=== PATIENT | male | born 1950 | race African-American/Black ===

== ENCOUNTER 2017-08-10 12:43 | Emergency (ER) | payer OTHER ==
[2017-08-10 12:53] VITALS: BP 147/94; PULSE 62; TEMP 98.3; BMI 21.6
--- NOTE | 2017-08-10 13:45 | PDOC ---
History of Present Illness - General Chief Complaint: Pain Stated Complaint: LEG PAIN Time Seen by Provider: 08/10/17 13:43 - History of Present Illness Initial Comments: 66 yo man w/ pmh of HTN, PAD, BPH who presents to ED from work today due to 2 days of worsening R leg claudication in setting recently diagnosed BL LE PAD. Pt was recently seen on 06/[address] Washington for evaluation of BL LE claudications , found to have BL arterial occlusions in LEs on imaging. Pt states two days ago he began noting worsening pain in his R popliteal fossa, with cramping in his posterior thigh. Pain states he can walk 1 block before experiencing the pain, alleviated by rest. Pt denies any asymmetry in warmth between legs, numbness/weakness in extremities. Pt was undergoing medical clearance for possible vascular procedure with Dr. Washington and was seen by Dr. Savage (cardiology ) this AM, cleared for surgery from a cardiac perspective. Of note, pt takes ASA for AC, but has not taken his ASA in 3-4 days. Pt denies f/c/n/v/d, FITZGERALD, CP, sob, cough, ab pain, back pain, LE edema, FND. 08/10/17 14:13 Past History - Past Medical History Allergies/Adverse Reactions: Allergies Allergy/AdvReac Type Severity Reaction Status Date / Time No Known Allergies Allergy Verified 08/10/17 12:50 Home Medications: Ambulatory Orders Amlodipine Besylate 1 tab PO DAILY 05/31/17 Finasteride 1 tab PO DAILY 05/31/17 Gabapentin 1 tab PO TID 05/31/17 Multivitamin [Multiple Vitamins] 1 tab PO DAILY 05/31/17 Omeprazole 40 mg PO DAILY 05/31/17 Tamsulosin HCl 1 tab PO DAILY 05/31/17 COPD: No HTN: Yes Hypercholesterolemia: Yes - Surgical History Abdominal Surgery: Yes (HERNIA) - Suicide/Smoking/Psychosocial Hx Smoking History: Current every day smoker Have you smoked in the past 12 months: Yes Number of Cigarettes Smoked Daily: 2 Information on smoking cessation initiated: Yes 'Breaking Loose' booklet given: 08/10/17 Hx Alcohol Use: No Drug/Substance Use Hx: No Substance Use Type: Alcohol Review of Systems - Review of Systems Comments:: GENERAL/CONSTITUTIONAL: No fever or chills. No weakness. HEAD, EYES, EARS, NOSE AND THROAT: No change in vision. No ear pain or discharge. No sore throat. CARDIOVASCULAR: No chest pain or shortness of breath RESPIRATORY: No cough, wheezing, or hemoptysis. GASTROINTESTINAL: No nausea, vomiting, diarrhea or constipation. GENITOURINARY: No dysuria, frequency, or change in urination. MUSCULOSKELETAL: Pain in R knee joint, worse with ambulation and climbing stairs. No joint or muscle swelling or pain. No neck or back pain. SKIN: No rash NEUROLOGIC: No headache, vertigo, loss of consciousness, or change in strength/ sensation. ENDOCRINE: No increased thirst. No abnormal weight change HEMATOLOGIC/LYMPHATIC: No anemia, easy bleeding, or history of blood clots. ALLERGIC/IMMUNOLOGIC: No hives or skin allergy. 08/10/17 13:44 08/10/17 14:22 *Physical Exam - Vital Signs Last Vital Signs Temp Pulse Resp BP Pulse Ox 98.3 F 62 18 147/94 100 08/10/17 12:51 08/10/17 12:51 08/10/17 12:51 08/10/17 12:51 08/10/17 12:51 - Physical Exam Comments: GENERAL: Elderly man, Awake, alert, and fully oriented, in no acute distress HEAD: No signs of trauma, normocephalic, atraumatic EYES: PERRLA, EOMI, sclera anicteric, conjunctiva clear ENT: Auricles normal inspection, hearing grossly normal, nares patent, oropharynx clear withoutexudates. Moist mucosa NECK: Normal ROM, supple, no lymphadenopathy, JVD, or masses LUNGS: No distress, speaks full sentences, clear to auscultation bilaterally HEART: Regular rate and rhythm, normal S1 and S2, no murmurs, rubs or gallops, peripheral pulses normal and equal bilaterally. ABDOMEN: Soft, nontender, normoactive bowel sounds. No guarding, no rebound. No masses EXTREMITIES : 1+ DP pulses BL, PT pulses. NO edema. warm to touch BL> Normal inspection, Normal range of motion, no edema. No clubbing or cyanosis. NEUROLOGICAL: Cranial nerves II through XII grossly intact. Normal speech, normal gait, no focal sensorimotor deficits SKIN: Warm, Dry, normal turgor, no rashes or lesions noted 08/10/17 13:45 08/10/17 14:23 ED Treatment Course - LABORATORY CBC & Chemistry Diagram: 08/10/17 15:45 08/10/17 15:45 Medical Decision Making - Medical Decision Making CBC, CMP, Coags, LE arterial doppler BL. Will contact Dr. Washington to discuss case. 08/10/17 18:38 Arterial doppler notable for no arterial clot, no significant change in prior R SFA stenosis. Will d/c with f/u with Dr. Washington as outpt. 08/10/17 18:52 Pt ambulatory with no pain in R leg, nontender to palpation. Will defer XR of R knee and discharge home with plan for continued outpt w/u for BL LE angioplasty with Dr. Washington. *DC/Admit/Observation/Transfer Diagnosis at time of Disposition: Peripheral arterial disease - Discharge Dispostion Disposition: HOME Condition at time of disposition: Good Decision to Admit order: No - Referrals Referrals: Cata Washington MD [Primary Care Provider] - 1 week Anand Washington MD [Staff Physician] - 1 week - Patient Instructions Printed Discharge Instructions: Peripheral Artery Disease Additional Instructions: During your visit to [facility] emergency department, you were evaluated for pain in R leg. You received an ultrasound of the arteries in both legs, which showed no blood clots or significant changes in the narrowing in your R superficial femoral artery. You are being discharged with outpatient follow-up with Dr. Anand Washington for further work-up for the scheduled angioplasty of the arteries in your lower extremities. Please follow-up with your primary care provider at your earliest convenience for further evaluation and clearance for your planned procedure with Dr. Washington. Please inform them to consider ordering x-ray of your right knee to further evaluate your pain if they deem it necessary for possible joint disease. Please continue taking your aspirin as originally prescribed. This medication will help prevent blood clots in your legs. Please return to the emergency department if you experience any of the following symptoms: - Worsening pain in your legs - If one leg becomes cold or numb - Any new or concerning symptoms - Post Discharge Activity
--- NOTE | 2017-08-10 13:50 | PDOC ---
Attending Attestation - Resident Resident Name: Duncankeejosé [email or web address] - HPI HPI: 08/10/17 14:59 Pt presents to the ED complaining of worsening of his chronic R LE claudication. Two days ago, pain became persistent and did not resolve with rest. Since then, patient has been at his baseline exercise tolerance of approximately one block before he has claudication. Denies other complaints. - Physicial Exam PE: 08/10/17 15:02 Agree with resident exam. + 1 dorasalis pedis pulse on affected foot. Foot is warm and neurovascularly intact. Full ROm at knee, without deformity or tenderness. - Medical Decision Making 08/10/17 15:03 Pt presents to the ED complaining of pain in the R knee when going up the stairs. Pain does not seem consistent with claudication , but given his history , will check arterial dopplers to evaluate for progressive disease.
[2017-08-10 16:08] LABS: EOS % 0.6 % (0-4.5); HEMATOCRIT 43.1 % (35.4-49); LYMPH % 22.3 % (8-40); MCH 30.9 pg (25.7-33.7); MCHC 34.8 g/dl (32.0-35.9); MEAN CELL VOLUME 88.8 fl (80-96); MEAN PLT VOLUME 8.2 fl (7.5-11.1); MONO % 8.3 % (3.8-10.2); NEUT % 67.8 % (42.8-82.8); PLATELET COUNT 205 K/MM3 (134-434); RBC 4.86 M/mm3 (4.00-5.60); RDW 15.4 % (11.9-15.9); WHITE BLOOD COUNT 7.4 K/mm3 (4.0-10.0)
[2017-08-10 16:22] LABS: INR 1.03 (0.82-1.09); PROTHROMBIN TIME (PATIENT) 11.6 SEC (9.7-13.0)
[2017-08-10 16:33] LABS: ALBUMIN 3.5 g/dl (3.4-5.0); ANION GAP 4 (8-16); BILIRUBIN,TOTAL 0.2 mg/dL (0.2-1.0); BLOOD UREA NITROGEN 18 mg/dL (7-18); CHLORIDE 106 mmol/L (98-107); CO2 29 mmol/L (21-32); CREATININE 1.2 mg/dL (0.7-1.3); GLUCOSE,RANDOM 88 mg/dL (74-106); POTASSIUM 4.4 mmol/L (3.5-5.1); SGOT/AST 23 U/L (15-37); SODIUM 139 mmol/L (136-145); TOT PROT 6.8 g/dl (6.4-8.2)
[2017-08-10 16:35] LABS: ALK PHOS 78 U/L (45-117); SGPT/ALT 20 U/L (12-78)
== END 2017-08-10 19:37 | disposition home or self-care (01) ==
LOC: JER 12:43
DX: I77.89 Other specified disorders of arteries and arterioles (principal); I10 Essential (primary) hypertension; E78.00 Pure hypercholesterolemia, unspecified; N40.0 Benign prostatic hyperplasia without lower urinary tract symptoms; F17.210 Nicotine dependence, cigarettes, uncomplicated; Z79.82 Long term (current) use of aspirin
CPT/HCPCS: 36415; 80053; 85025; 85610; 93926-TC; 99282-25

== ENCOUNTER 2018-01-07 11:41 | Emergency (ER) | payer MEDICARE, OTHER ==
[2018-01-07 11:50] VITALS: BP 114/76; PULSE 75; TEMP 98.9; BMI 22.4
[2018-01-07] MEDS ORDERED: IBUPROFEN 400 MG TABLET (FP) PO ONE ×2 (12:06→12:17)
[2018-01-07] MEDS ORDERED: ALBUTEROL SO4 2.5/IPRATROPIUM 0.5 INH SOL 3 ML VIAL.NEB. NEB ONE ×2 (12:07→12:17)
[2018-01-07] MEDS ORDERED: guaiFENesin/CODEINE 5 ML UNIT-DOSE CUPS PO ONE (12:07)
--- NOTE | 2018-01-07 12:17 | PDOC ---
History of Present Illness - General Chief Complaint: Respiratory Stated Complaint: LT SIDE PAIN Time Seen by Provider: 01/07/18 11:56 History Source: Patient Exam Limitations: No Limitations Past History - Travel Traveled outside of the country in the last 30 days: No Close contact w/someone who was outside of country & ill: No - Past Medical History Allergies/Adverse Reactions: Allergies Allergy/AdvReac Type Severity Reaction Status Date / Time No Known Allergies Allergy Verified 01/07/18 11:53 Home Medications: Ambulatory Orders Amlodipine Besylate 1 tab PO DAILY 05/31/17 Finasteride 1 tab PO DAILY 05/31/17 Gabapentin 1 tab PO TID 05/31/17 Multivitamin [Multiple Vitamins] 1 tab PO DAILY 05/31/17 Omeprazole 40 mg PO DAILY 05/31/17 Tamsulosin HCl 1 tab PO DAILY 05/31/17 Albuterol Sulfate Inhaler - [Ventolin HFA Inhaler -] 1 - 2 inh PO Q4H #1 inhaler 01/07/18 Aspirin [ASA -] 81 mg PO DAILY 01/07/18 Guaifenesin AC [Robitussin AC] 10 ml PO HS #150 ml MDD 1 01/07/18 Ibuprofen 600 mg PO Q6H #30 tablet 01/07/18 Simvastatin [Zocor -] 20 mg PO HS 01/07/18 COPD: No HTN: Yes Hypercholesterolemia: Yes - Surgical History Abdominal Surgery: Yes (HERNIA) - Suicide/Smoking/Psychosocial Hx Smoking History: Current every day smoker Have you smoked in the past 12 months: Yes Number of Cigarettes Smoked Daily: 10 Information on smoking cessation initiated: No 'Breaking Loose' booklet given: 08/10/17 Hx Alcohol Use: No Drug/Substance Use Hx: No Substance Use Type: Alcohol Review of Systems - Review of Systems Able to Perform ROS?: Yes Comments:: 01/07/18 12:03 CONSTITUTIONAL: Absent: fever, chills, diaphoresis, generalized weakness, malaise, loss of appetite HEENT: Absent: rhinorrhea, nasal congestion, throat pain, throat swelling, difficulty swallowing, mouth swelling, ear pain, eye pain, visual Changes CARDIOVASCULAR: Absent: chest pain, loss of consciousness, palpitations, irregular heart rate, peripheral edema RESPIRATORY: Absent: cough, shortness of breath, dyspnea with exertion, orthopnea, wheezing, stridor, hemoptysis GASTROINTESTINAL: Absent: abdominal pain, abdominal distension, nausea, vomiting, diarrhea, constipation, melena, hematochezia GENITOURINARY: Absent: dysuria, frequency, urgency, hesitancy, hematuria, flank pain, genital pain MUSCULOSKELETAL: Absent: myalgia, arthralgia, joint swelling SKIN: Absent: rash, itching, pallor HEMATOLOGIC/IMMUNOLOGIC: Absent: easy bleeding, easy bruising, lymphadenopathy, frequent infections ENDOCRINE: Absent: unexplained weight gain, unexplained weight loss, heat intolerance, cold intolerance NEUROLOGIC: Absent: headache, focal weakness or paresthesias, dizziness, unsteady gait, seizure, mental status changes, bladder or bowel incontinence PSYCHIATRIC: Absent: anxiety, depression, suicidal or homicidal ideation, hallucinations. Is the patient limited Polish proficient: No *Physical Exam - Vital Signs Last Vital Signs Temp Pulse Resp BP Pulse Ox 98.9 F 75 18 114/76 99 01/07/18 11:44 01/07/18 11:44 01/07/18 11:44 01/07/18 11:44 01/07/18 11:44 - Physical Exam Comments: 01/07/18 12:03 GENERAL: Well developed, well nourished. Awake and alert. No acute distress. HEENT: Normocephalic, atraumatic. PERRLA, EOMI. No conjunctival pallor. Sclera are non- icteric. Moist mucous membranes. Oropharynx is clear. NECK: Supple. Full ROM. No JVD. Carotid pulses 2+ and symmetric, without bruits. No thyromegaly. No lymphadenopathy. CARDIOVASCULAR: Regular rate and rhythm. No murmurs, rubs, or gallops. Distal pulses are 2+ and symmetric. PULMONARY: No evidence of respiratory distress. Lungs clear to auscultation bilaterally. No wheezing, rales or rhonchi. ABDOMINAL: Soft. Non-tender. Non-distended. No rebound or guarding. No organomegaly. Normoactive bowel sounds. MUSCULOSKELETAL Normal range of motion at all joints. No bony deformities or tenderness. No CVA tenderness. EXTREMITIES: No cyanosis. No clubbing. No edema. No calf tenderness. SKIN: Warm and dry. Normal capillary refill. No rashes. No jaundice. NEUROLOGICAL: Alert, awake, appropriate. Cranial nerves 2-12 intact. No deficits to light touch and temperature in face, upper extremities and lower extremities. No motor deficits in the in face, upper extremities and lower extremities. Normoreflexic in the upper and lower extremities. Normal speech. Toes are down- going bilaterally. Gait is normal without ataxia. PSYCHIATRIC: Cooperative. Good eye contact. Appropriate mood and affect. *DC/Admit/Observation/Transfer Diagnosis at time of Disposition: Upper respiratory infection Qualifiers: URI type: unspecified viral URI Qualified Code(s): J06.9 - Acute upper respiratory infection, unspecified - Discharge Dispostion Disposition: HOME Condition at time of disposition: Stable Decision to Admit order: No - Referrals Referrals: Cata Washington MD [Primary Care Provider] - - Patient Instructions Printed Discharge Instructions: DI for Viral Upper Respiratory Infection -- Adult Additional Instructions: You have an upper respiratory infection, or the common cold. Please take Motrin 600 mg every 6 hours as needed for pain not to exceed 3000 mg a day. You may use the albuterol inhaler every 4 hours as needed for cough You may take the robitussin with codiene before bed to help with the cough. Do not drink or drive after taking this medication as it may make you sleepy. Drink plenty of fluids. Cough drops and warm tea may help your symptoms as well. Please follow up with her primary care doctor this week. Return to the emergency department if you have difficulty breathing, shortness of breath, worsening pain, nausea, vomiting or if you have any changes in your symptoms. - Post Discharge Activity Forms/Work/School Notes: Back to Work
[2018-01-07] MEDS ORDERED: guaiFENesin/CODEINE 10 ML UNIT-DOSE CUPS PO ONE (12:18)
== END 2018-01-07 12:54 | disposition home or self-care (01) ==
LOC: JERFT 11:41
PROC: 3E0F7GC Introduction of Other Therapeutic Substance into Respiratory Tract, Via Natural or Artificial Opening (ICD-10-PCS; principal; 2018-01-07)
DX: J06.9 Acute upper respiratory infection, unspecified (principal); I10 Essential (primary) hypertension; E78.00 Pure hypercholesterolemia, unspecified; Z79.82 Long term (current) use of aspirin
CPT/HCPCS: 94640; 99281-25; J7620

== ENCOUNTER 2019-01-12 09:49 | Day surgery (SDC) | payer MEDICARE ==
[2019-01-11 12:14] VITALS: BMI 22.4
[2019-01-12] MEDS ORDERED: HEPARIN NA (PORCINE) 5,000 UNITS/ML 1ML VIAL ONE ×2 (11:29)
[2019-01-12] MEDS ORDERED: LIDOCAINE HCL 1%, 10 MG/ML (20ML VIAL) ONE (11:29)
--- NOTE | 2019-01-12 11:40 | HP ---
Admitting History and Physical - Admission Chief Complaint: Left lower extremity claudication Limitations to Obtaining History: No Limitations - Past Medical History Cardiovascular: Yes: HTN Gastrointestinal: Yes: GERD Renal/: Yes: BPH - Past Surgical History Past Surgical History: Yes: Hernia Repair - Smoking History Smoking history: Current every day smoker Have you smoked in the past 12 months: Yes Aproximately how many cigarettes per day: 10 - Alcohol/Substance Use Hx Alcohol Use: Yes (5 beers 5x week) Home Medications - Allergies Allergies/Adverse Reactions: Allergies Allergy/AdvReac Type Severity Reaction Status Date / Time No Known Allergies Allergy Verified 01/11/19 11:58 - Home Medications Home Medications: Ambulatory Orders Amlodipine Besylate 1 tab PO DAILY 05/31/17 Finasteride 1 tab PO DAILY 05/31/17 Gabapentin 1 tab PO TID 05/31/17 Multivitamin [Multiple Vitamins] 1 tab PO DAILY 05/31/17 Omeprazole 40 mg PO DAILY 05/31/17 Tamsulosin HCl 1 tab PO DAILY 05/31/17 Aspirin [ASA -] 81 mg PO DAILY 01/07/18 Simvastatin [Zocor -] 20 mg PO HS 01/07/18 Review of Systems - Review of Systems Constitutional: reports: No Symptoms Eyes: reports: No Symptoms HENT: reports: No Symptoms Neck: reports: No Symptoms Cardiovascular: reports: No Symptoms Respiratory: reports: No Symptoms Gastrointestinal: reports: No Symptoms Genitourinary: reports: No Symptoms Breasts: reports: No Symptoms Reported Musculoskeletal: reports: No Symptoms Integumentary: reports: No Symptoms Neurological: reports: No Symptoms Endocrine: reports: No Symptoms Hematology/Lymphatic: reports: No Symptoms Psychiatric: reports: No Symptoms Physical Examination Vital Signs: Vital Signs Temperature 98.0 F 01/12/19 10:31 Pulse Rate 60 01/12/19 10:31 Respiratory Rate 20 01/12/19 10:31 Blood Pressure 123/69 01/12/19 10:31 O2 Sat by Pulse Oximetry (%) 100 01/12/19 10:31 Constitutional: Yes: Well Nourished, No Distress, Calm Eyes: Yes: WNL, Conjunctiva Clear, EOM Intact HENT: Yes: WNL, Atraumatic, Normocephalic Neck: Yes: WNL, Supple, Trachea Midline Cardiovascular: Yes: WNL, Regular Rate and Rhythm Respiratory: Yes: WNL, Regular, CTA Bilaterally Gastrointestinal: Yes: WNL, Normal Bowel Sounds Musculoskeletal: Yes: WNL Extremities: Yes: WNL Edema: No Peripheral Pulses WNL: No Integumentary: Yes: WNL Neurological: Yes: WNL, Alert, Oriented ...Motor Strength: WNL Psychiatric: Yes: WNL Problem List - Problems (1) Left leg claudication Assessment/Plan: for angiogram today Code(s): I73.9 - PERIPHERAL VASCULAR DISEASE, UNSPECIFIED
[2019-01-12] MEDS ORDERED: ceFAZolin SODIUM 1 GM VIAL IVPB ONE (12:20)
[2019-01-12] MEDS ORDERED: MIDAZOLAM HCL 2 MG/2 ML SINGLE DOSE VIAL ONE ×2 (12:21)
[2019-01-12] MEDS ORDERED: HEPARIN NA (PORCINE) 5,000 UNITS/ML 1ML VIAL IV ONE (12:39)
[2019-01-12] MEDS ORDERED: LIDOCAINE HCL 1%, 10 MG/ML (20ML VIAL) PNB ONE (12:41)
[2019-01-12] MEDS ORDERED: oxyCODONE HCL 5 MG TABLET PO PRN (13:17)
[2019-01-12] MEDS ORDERED: ONDANSETRON 4 MG/2 ML VIAL IVPUSH PRN (13:17)
--- NOTE | 2019-01-12 13:17 | OP ---
Operative Note - Note: Operative Date: 01/12/19 Operation: Aortogram, LLE angiogram Findings: sfa occlusion Post-Operative Diagnosis: Same as Pre-op Surgeon: Anand Washington Anesthesia: Fractional Estimated Blood Loss (mls): 50 Operative Report Dictated: Yes
[2019-01-12] MEDS ORDERED: LACTATED RINGERS SOLUTION 1,000 ML IV SCH (13:30)
[2019-01-12 16:33] VITALS: TEMP 97.4
[2019-01-12 16:39] VITALS: BP 127/78; PULSE 65
--- NOTE | 2019-01-24 12:31 | OP ---
DATE OF OPERATION: 01/12/2019 PREOPERATIVE DIAGNOSIS: Left lower extremity claudication. POSTOPERATIVE DIAGNOSIS: Left lower extremity claudication. PROCEDURE: Left lower extremity angiogram, aortogram. SURGEON: Anand Medina DO ANESTHESIA: Fractional. BLOOD LOSS: 20 mL. INDICATIONS: Patient is a 68-year-old male who is a smoker for more than 40 years comes in with left lower extremity claudication. Preoperative ultrasound showed that he has SFA disease. Patient was consented. Patient came into ambulatory surgery. Patient was consented for the procedure understanding all risks, benefits, and alternatives and was then taken to the operating room. DESCRIPTION OF PROCEDURE: Once in the operating room, was laid on the operating room table in supine manner, and the area of the right and left groin were prepped and draped in a sterile surgical manner. We then injected 10 mL of lidocaine 1% over the right common femoral artery. We then took our micropuncture needle and punctured the right common femoral artery. Micropuncture wire was inserted. Micropuncture sheath was inserted. A traditional 5-Belarusian sheath was inserted. We then placed a 0.035 floppy guidewire up into the aorta followed by Omni Flush catheter. We then shot an aortogram via hand injection showing that the aorta and iliac arteries were without any disease. We then went ahead and placed our 0.035 floppy guidewire up and over to the left common femoral artery, and our Omni Flush catheter followed. We then shot an angiogram of the left lower extremity showing that the common femoral artery and the profunda were patent. The SFA was occluded from its origin and did not come back until past the adductor canal and the above-knee popliteal artery. Patient had 2-vessel runoff into the foot. At this point, it was decided that the patient would either need a femoropopliteal bypass or would need a retrograde stick from the popliteal artery to go up to the common femoral artery and place a stent in the SFA. The patient will need to be brought back for that. Several attempts were made for the 0.035 stiff guidewire to go into the SFA and cannulate it, but since there was no origin that can be seen, it was very difficult. Patient will be brought back at a later setting now. At this point, our Omni Flush catheter was removed. We removed our sheath from the right groin. Pressure was held for 5 minutes. After there was no more bleeding, the area was wet and dried, and Dermabond was placed. Patient tolerated the procedure with no complications. Patient transferred to PACU in stable condition. ANAND MEDINA DO NP/[id number]
== END 2019-01-12 16:00 | disposition home or self-care (01) ==
LOC: JASU-SURG 09:49
PROVIDERS: ATTEND Surgery Vascular Surgery
PROC: B40GYZZ Plain Radiography of Left Lower Extremity Arteries using Other Contrast (ICD-10-PCS; principal; 2019-01-12 12:00)
DX: I70.212 Atherosclerosis of native arteries of extremities with intermittent claudication, left leg (principal); F17.210 Nicotine dependence, cigarettes, uncomplicated; I11.9 Hypertensive heart disease without heart failure; E78.00 Pure hypercholesterolemia, unspecified
CPT/HCPCS: 76000-TC-FY; 94760; J1644

== ENCOUNTER 2019-02-02 07:41 | Day surgery (SDC) | payer MEDICARE ==
[2019-02-01 13:06] VITALS: BMI 22.4
[2019-02-02] MEDS ORDERED: MIDAZOLAM HCL 2 MG/2 ML SINGLE DOSE VIAL ONE ×3 (07:49)
[2019-02-02] MEDS ORDERED: PROPOFOL 20 ML ONE ×3 (07:56→09:48)
[2019-02-02] MEDS ORDERED: NITROGLYCERIN 50 MG/10 ML VIAL IVPB ONE (07:57)
[2019-02-02] MEDS ORDERED: HEPARIN NA (PORCINE) 5,000 UNITS/ML 1ML VIAL ONE ×2 (07:58→09:43)
[2019-02-02] MEDS ORDERED: LIDOCAINE HCL 1%, 10 MG/ML (20ML VIAL) ONE (07:58)
[2019-02-02] MEDS ORDERED: oxyCODONE HCL 5 MG TABLET PO PRN ×2 (08:33)
[2019-02-02] MEDS ORDERED: ONDANSETRON 4 MG/2 ML VIAL IVPUSH PRN (08:33)
[2019-02-02] MEDS ORDERED: LACTATED RINGERS SOLUTION 1,000 ML IV SCH (08:45)
--- NOTE | 2019-02-02 09:02 | HP ---
Admitting History and Physical - Admission Chief Complaint: left lower extremity claudication less than one block Limitations to Obtaining History: No Limitations - Past Medical History Cardiovascular: Yes: HTN Gastrointestinal: Yes: GERD Renal/: Yes: BPH - Past Surgical History Past Surgical History: Yes: Hernia Repair - Smoking History Smoking history: Current every day smoker Have you smoked in the past 12 months: Yes Aproximately how many cigarettes per day: 10 - Alcohol/Substance Use Hx Alcohol Use: Yes (5 beers 5x week) Home Medications - Allergies Allergies/Adverse Reactions: Allergies Allergy/AdvReac Type Severity Reaction Status Date / Time No Known Allergies Allergy Verified 02/02/19 08:26 - Home Medications Home Medications: Ambulatory Orders Amlodipine Besylate 1 tab PO DAILY 05/31/17 Finasteride 1 tab PO DAILY 05/31/17 Gabapentin 1 tab PO TID 05/31/17 Multivitamin [Multiple Vitamins] 1 tab PO DAILY 05/31/17 Omeprazole 40 mg PO DAILY 05/31/17 Tamsulosin HCl 1 tab PO DAILY 05/31/17 Aspirin [ASA -] 81 mg PO DAILY 01/07/18 Simvastatin [Zocor -] 20 mg PO HS 01/07/18 Review of Systems - Review of Systems Constitutional: reports: No Symptoms Eyes: reports: No Symptoms HENT: reports: No Symptoms Neck: reports: No Symptoms Cardiovascular: reports: No Symptoms Respiratory: reports: No Symptoms Gastrointestinal: reports: No Symptoms Genitourinary: reports: No Symptoms Breasts: reports: No Symptoms Reported Musculoskeletal: reports: No Symptoms Integumentary: reports: No Symptoms Neurological: reports: No Symptoms Endocrine: reports: No Symptoms Hematology/Lymphatic: reports: No Symptoms Psychiatric: reports: No Symptoms Physical Examination Vital Signs: Vital Signs Temperature 97.8 F 02/02/19 08:25 Pulse Rate 56 L 02/02/19 08:25 Respiratory Rate 20 02/02/19 08:25 Blood Pressure 130/71 02/02/19 08:25 O2 Sat by Pulse Oximetry (%) 99 02/02/19 08:18 Constitutional: Yes: Well Nourished, No Distress, Calm Eyes: Yes: WNL, Conjunctiva Clear, EOM Intact HENT: Yes: WNL, Atraumatic, Normocephalic Neck: Yes: WNL, Supple, Trachea Midline Cardiovascular: Yes: WNL, Regular Rate and Rhythm Respiratory: Yes: WNL, Regular, CTA Bilaterally Gastrointestinal: Yes: WNL, Normal Bowel Sounds ...Rectal Exam: Yes: WNL Renal/: Yes: WNL Musculoskeletal: Yes: WNL Extremities: Yes: WNL Edema: No Peripheral Pulses WNL: No Integumentary: Yes: WNL Neurological: Yes: WNL, Alert, Oriented ...Motor Strength: WNL Psychiatric: Yes: WNL Problem List - Problems (1) Left leg claudication Assessment/Plan: for angiogram of left leg via popliteal approach Problems reviewed: Yes Code(s): I73.9 - PERIPHERAL VASCULAR DISEASE, UNSPECIFIED
[2019-02-02] MEDS ORDERED: ceFAZolin 2 GRAM PREMIX BAG IVPB ONE (09:15)
[2019-02-02] MEDS ORDERED: EPHEDRINE SULFATE/0.9% NACL/PF 50 MG/10 ML SYRINGE NR ONE (09:37)
[2019-02-02] MEDS ORDERED: SUCCINYLCHOLINE CHLORIDE 200 MG/10 ML SYRINGE ONE (09:38)
[2019-02-02] MEDS ORDERED: LIDOCAINE HCL 1%, 10 MG/ML (20ML VIAL) NR ONE ×2 (09:40)
--- NOTE | 2019-02-02 10:35 | OP ---
Operative Note - Note: Operative Date: 02/02/19 Pre-Operative Diagnosis: Left lower extremity claudication Operation: Left lower extremity angiogram via retrograde popliteal approach Findings: sfa occlusion Post-Operative Diagnosis: Same as Pre-op Surgeon: Anand Washington Anesthesia: Fractional Estimated Blood Loss (mls): 25 Operative Report Dictated: Yes
[2019-02-02 11:20] VITALS: TEMP 97.4
--- NOTE | 2019-02-02 11:38 | OP ---
DATE OF OPERATION: 02/02/2019 PREOPERATIVE DIAGNOSIS: Left lower extremity claudication. POSTOPERATIVE DIAGNOSIS: Left lower extremity claudication. PROCEDURE: Left lower extremity angiogram via retrograde popliteal approach. SURGEON: Anand Medina DO ANESTHESIA: Fractional. ESTIMATED BLOOD LOSS: 25 mL. INDICATIONS: Patient is a 68-year-old male that has left lower extremity claudication less than 1 block. Two weeks ago he had an antegrade approach angiogram, and the SFA was found to be completely occluded from the origin all the way down to the above-knee popliteal/adductor canal. We decided that we would bring him back 2 weeks later and do a retrograde approach from the popliteal artery and see if we could get through the occluded SFA and then balloon and stent him. Patient was consented for the procedure understanding all risks, benefits, alternatives and then taken to the operating room. DESCRIPTION OF PROCEDURE: Once in the operating room, was laid on the operating room table in a prone manner, and the area of the left popliteal fossa was prepped and draped in a sterile surgical manner. Under ultrasound guidance, we did visualize the left popliteal artery, and 10 mL of lidocaine 1% was injected there. We then took our micropuncture needle, punctured the left popliteal artery. Micropuncture wire was inserted. Micropuncture sheath was inserted, and a traditional short 6-Tajik sheath was inserted. We then placed a 0.035 floppy guidewire under fluoroscopy up into the occluded SFA followed by a Quick-Cross catheter. We were able to get through the occluded SFA and placed a wire into the common femoral artery and into the iliac artery; however, we were always subintimal, and we were never able to get into the resighini vessel. After multiple attempts using a burn catheter and trying to redirect our wire, we still were never in the proper resighini vessel. At this point, we decided that the best procedure for this patient would be a left femoral popliteal. We removed our wires and catheters. We removed the sheath from the popliteal fossa. During the procedure, the patient had been given 5000 units of IV heparin. We held pressure over the left popliteal fossa for 15 minutes. After there was no more bleeding, the area was wet and dried, and Dermabond was placed. The patient tolerated the procedure with no complications. Patient was transferred to the PACU in stable condition. ANAND MEDINA DO MEDICAL BILLING ASSISTANT/[id number]
[2019-02-02 12:41] VITALS: BP 117/70; PULSE 58
== END 2019-02-02 13:15 | disposition home or self-care (01) ==
LOC: JASU-SURG 07:41
PROVIDERS: ATTEND Surgery Vascular Surgery
PROC: B40GYZZ Plain Radiography of Left Lower Extremity Arteries using Other Contrast (ICD-10-PCS; principal; 2019-02-02 09:00)
DX: I70.212 Atherosclerosis of native arteries of extremities with intermittent claudication, left leg (principal)
CPT/HCPCS: 76000-TC-FY; 94760; J1644

== ENCOUNTER 2019-04-20 08:30 | Inpatient (IN) | payer MEDICARE, OTHER ==
[2019-04-19 15:51] VITALS: BMI 22.4
[2019-04-20] MEDS ORDERED: LIDOCAINE HCL 1%, 10 MG/ML (20ML VIAL) ONE (08:49)
[2019-04-20] MEDS ORDERED: HEPARIN NA (PORCINE) 5,000 UNITS/ML 1ML VIAL ONE ×2 (08:49→11:56)
--- NOTE | 2019-04-20 09:11 | HP ---
Admitting History and Physical - Admission Chief Complaint: left lower extremity claudication less than one block. Limitations to Obtaining History: No Limitations - Past Medical History Cardiovascular: Yes: HTN Gastrointestinal: Yes: GERD Renal/: Yes: BPH - Past Surgical History Past Surgical History: Yes: Hernia Repair - Smoking History Smoking history: Current every day smoker Have you smoked in the past 12 months: Yes Aproximately how many cigarettes per day: 10 - Alcohol/Substance Use Hx Alcohol Use: Yes (3-4 beers/day) Home Medications - Allergies Allergies/Adverse Reactions: Allergies Allergy/AdvReac Type Severity Reaction Status Date / Time No Known Allergies Allergy Verified 04/20/19 08:53 - Home Medications Home Medications: Ambulatory Orders Amlodipine Besylate 1 tab PO DAILY 05/31/17 Finasteride 1 tab PO DAILY 05/31/17 Gabapentin 1 tab PO TID 05/31/17 Multivitamin [Multiple Vitamins] 1 tab PO DAILY 05/31/17 Omeprazole 40 mg PO DAILY 05/31/17 Tamsulosin HCl 1 tab PO DAILY 05/31/17 Aspirin [ASA -] 81 mg PO DAILY 01/07/18 Simvastatin [Zocor -] 20 mg PO HS 01/07/18 Review of Systems - Review of Systems Constitutional: reports: No Symptoms Eyes: reports: No Symptoms HENT: reports: No Symptoms Neck: reports: No Symptoms Cardiovascular: reports: No Symptoms Respiratory: reports: No Symptoms Gastrointestinal: reports: No Symptoms Genitourinary: reports: No Symptoms Musculoskeletal: reports: No Symptoms Integumentary: reports: No Symptoms Neurological: reports: No Symptoms Endocrine: reports: No Symptoms Hematology/Lymphatic: reports: No Symptoms Psychiatric: reports: No Symptoms Physical Examination Vital Signs: Vital Signs Temperature 98.4 F 04/20/19 09:08 Pulse Rate 78 04/20/19 09:08 Respiratory Rate 18 04/20/19 09:08 Blood Pressure 119/76 04/20/19 09:08 O2 Sat by Pulse Oximetry (%) Constitutional: Yes: Well Nourished, No Distress, Calm Eyes: Yes: WNL, Conjunctiva Clear, EOM Intact HENT: Yes: WNL, Atraumatic, Normocephalic Neck: Yes: WNL, Supple, Trachea Midline Cardiovascular: Yes: WNL, Regular Rate and Rhythm Respiratory: Yes: WNL, Regular, CTA Bilaterally Gastrointestinal: Yes: WNL, Normal Bowel Sounds Musculoskeletal: Yes: WNL Extremities: Yes: WNL Edema: No Peripheral Pulses WNL: No Integumentary: Yes: WNL Neurological: Yes: WNL, Alert, Oriented ...Motor Strength: WNL Psychiatric: Yes: WNL Problem List - Problems (1) Left leg claudication Assessment/Plan: For left fem pop bypass with PTFE today Code(s): I73.9 - PERIPHERAL VASCULAR DISEASE, UNSPECIFIED
[2019-04-20] MEDS ORDERED: PROPOFOL 20 ML ONE (10:12)
[2019-04-20] MEDS ORDERED: SUCCINYLCHOLINE CHLORIDE 200 MG/10 ML SYRINGE ONE (10:12)
[2019-04-20] MEDS ORDERED: HYDROmorphone HCl 2 MG/ML VIAL ONE (10:32)
[2019-04-20] MEDS ORDERED: ceFAZolin SODIUM 1 GM VIAL ONE (10:40)
[2019-04-20] MEDS ORDERED: ceFAZolin SODIUM 1 GM VIAL IVPB ONE (10:40)
[2019-04-20] MEDS ORDERED: LIDOCAINE HCL 1%, 10 MG/ML (20ML VIAL) NR ONE (10:49)
[2019-04-20] MEDS ORDERED: DEXAMETHASONE SOD PHOSPHATE 4 MG/1 ML VIAL ONE (10:55)
[2019-04-20] MEDS ORDERED: POVIDONE-IODINE OINTMENT 10% - 28.4 GM TUBE ONE (13:51)
--- NOTE | 2019-04-20 15:38 | CONSULT ---
Consultation: REQUESTING PROVIDER: Dr Anand Washington CONSULT REQUEST: We have been asked to medically evaluate this patient for ICU monitoring HISTORY OF PRESENT ILLNESS: 68 y/o M with PMH of HTN, HLD, polysubstance abuse (tobacco, EtOH, cocaine, marijuana), PAD with 1 block R>L claudication presenting to [facility] for LLE Fen pop bypass surgery for SFA occlusion as prior interventions were unsuccessful. Pt has been having pain in his left leg for about a month only on ambulation. He denies any ulceration or rest pain since last visit on 02/07/19. Pt is active smoker (1/2 PPD) and continues to used cocaine with last use 3 days ago. Pt endorsed SOB prior to procedure but denies any chest pain, SOB currently, near or true syncope, palpitations, orthopnea, PND or LE edema. REVIEW OF SYSTEMS: CONSTITUTIONAL: Absent: fever, chills, diaphoresis, generalized weakness, malaise, loss of appetite, weight change HEENT: Absent: rhinorrhea, nasal congestion, throat pain, throat swelling, difficulty swallowing, mouth swelling, ear pain, eye pain, visual changes CARDIOVASCULAR: Absent: chest pain, syncope, palpitations, irregular heart rate, lightheadedness , peripheral edema RESPIRATORY: Absent: cough, shortness of breath, dyspnea with exertion, orthopnea, wheezing, stridor, hemoptysis GASTROINTESTINAL: Absent: abdominal pain, abdominal distension, nausea, vomiting, diarrhea, constipation, melena, hematochezia GENITOURINARY: Absent: dysuria, frequency, urgency, hesitancy, hematuria, flank pain, genital pain MUSCULOSKELETAL: Absent: myalgia, arthralgia, joint swelling, back pain, neck pain SKIN: Absent: rash, itching, pallor HEMATOLOGIC/IMMUNOLOGIC: Absent: easy bleeding, easy bruising, lymphadenopathy, frequent infections ENDOCRINE: Absent: unexplained weight gain, unexplained weight loss, heat intolerance, cold intolerance NEUROLOGIC: Absent: headache, focal weakness or paresthesias, dizziness, unsteady gait, seizure, mental status changes, bladder or bowel incontinence PSYCHIATRIC: Absent: anxiety, depression, suicidal or homicidal ideation, hallucinations. PHYSICAL EXAMINATION Vital Signs - 24 hr 04/20/19 04/20/19 04/20/19 09:08 09:29 14:20 Temperature 98.4 F 98.1 F Pulse Rate 78 103 H Respiratory 18 16 Rate Blood Pressure 119/76 154/78 O2 Sat by Pulse 96 100 Oximetry (%) 04/20/19 04/20/19 04/20/19 14:35 14:51 15:01 Temperature 98.1 F 98.3 F Pulse Rate 101 H 98 H Respiratory 16 16 16 Rate Blood Pressure 129/81 128/87 O2 Sat by Pulse 100 100 100 Oximetry (%) 04/20/19 15:04 Temperature 98.0 F Pulse Rate 102 H Respiratory 16 Rate Blood Pressure 126/80 O2 Sat by Pulse 100 Oximetry (%) GENERAL: still recovering from anesthesia but able to hold a conversation and AAOx3 HEAD: Normal with no signs of trauma. EYES: Pupils equal but constricted, round and reactive to light, extraocular movements intact, sclera anicteric, conjunctiva clear. No lid lag. EARS, NOSE, THROAT: oropharynx clear without exudates. Moist mucous membranes. NECK: Normal range of motion, supple without lymphadenopathy, JVD, or masses. LUNGS: Breath sounds equal, clear to auscultation bilaterally. No wheezes, and no crackles. No accessory muscle use. HEART: tachy but Regular rate and rhythm, normal S1 and S2 without murmur, rub or gallop. ABDOMEN: Soft, nontender, not distended, bowel sounds quiet s/p surgery, no guarding, no rebound, no masses. No hepatomegaly or splenomegaly. MUSCULOSKELETAL: Normal range of motion at all joints. No bony deformities or tenderness. No CVA tenderness. UPPER EXTREMITIES: 2+ pulses, warm, well-perfused. No cyanosis. No clubbing. Cap refill <2 seconds. No peripheral edema. LOWER EXTREMITIES: 1+ pulses on PT, absent on left DP and Right warm, well- perfused. No calf tenderness. No peripheral edema. PSYCHIATRIC: Cooperative. Good eye contact. Appropriate mood and affect. SKIN: Warm, dry, normal turgor, no rashes or lesions noted. Laboratory Results - last 24 hr 04/20/19 04/20/19 08:45 11:00 Blood Type B POSITIVE B POSITIVE Antibody Screen Negative ASSESSMENT/PLAN: 68 y/o M with PMH of HTN, HLD, polysubstance abuse (tobacco, EtOH, cocaine, marijuana), PAD with 1 block R>L claudication s/p LLE Fen pop bypass surgery for SFA occlusion as prior interventions were unsuccessful. NEURO -Pt in and out of sleep s/p anesthesia -AAOx3 -monitor CardioVascular -Pt POD 0 of Fen pop Bypass on left for SFA occlusion -Px has Hx of HTN, HLD, Cocaine user and smoker -current BP 119/86 mmHg, Map 96 -resume all home BP meds -will start on Plavix 75 mg daily -cont ASA daily -No need for heparin drip as procedure was for claudication per vascular -pain control with tylenol 650mg Q6h for mild 1-6 -pain control with morphine 2mg Q6h for 7-10 pain Pulmonary -NO respiratory complaints -RR 13, O2 sat 99%. Pt s/p anesthesia -monitor GI -NO GI complaints -monitor ID -Pt afebrile, no infectious symptoms -monitor -f/u CBC Renal -Pt with schroeder and draining -Hx of BPH -Last doc Cr 1.3 -f/u BMP -cont flomax 0.4 mg HS -cont Finesteride 5 mg FEN -No standing fluids. Encourage fluid intake -monitor lytes -salt controlled diet DVT -TEDs LTD -peripheral line on R hand -Schroeder 04/20/2019 Dispo: ICU care Visit type - Emergency Visit Emergency Visit: Yes ED Registration Date: 04/20/19 Care time: The patient presented to the Emergency Department on the above date and was hospitalized for further evaluation of their emergent condition. - New Patient This patient is new to me today: Yes Date on this admission: 04/20/19 - Critical Care Critical Care patient: Yes Total Critical Care Time (in minutes): 35 Critical Care Statement: The care of this patient involved high complexity decision making to prevent further life threatening deterioration of the patient 's condition and/or to evaluate & treat vital organ system(s) failure or risk of failure. ATTENDING PHYSICIAN STATEMENT I saw and evaluated the patient. I reviewed the resident's note and discussed the case with the resident. I agree with the resident's findings and plan as documented. SUBJECTIVE: OBJECTIVE: ASSESSMENT AND PLAN:
[2019-04-20] MEDS ORDERED: ACETAMINOPHEN 325 MG TABLET (FP) PO PRN ×2 (16:05→17:40)
[2019-04-20] MEDS ORDERED: MORPHINE SULFATE 2 MG/ML VIAL IVPUSH PRN (17:38)
[2019-04-20] MEDS ORDERED: ATORVASTATIN CA 10 MG TABLET (FP) PO SCH (22:00)
[2019-04-20] MEDS ORDERED: CHLORHEXIDINE GLUCONATE 4% CLEANSER FOR DECOLONIZATION TP SCH (22:00)
[2019-04-20] MEDS: MUPIROCIN 2% TOPICAL OINTMENT FOR DECOLONIZATION NS SCH (23:16)
[2019-04-20] MEDS: GABAPENTIN 100 MG CAPSULE PO SCH (23:16)
[2019-04-21] MEDS: GABAPENTIN 100 MG CAPSULE PO SCH ×3 (06:48→21:53)
[2019-04-21 07:10] LABS: BASO % 0.2 % (0-2.0); HEMATOCRIT 38.3 % (35.4-49); HEMOGLOBIN 13.2 GM/dL (11.7-16.9); INR 1.06 (0.83-1.09); LYMPH % 8.4 % (8-40); MCH 30.7 pg (25.7-33.7); MCHC 34.4 g/dl (32.0-35.9); MEAN CELL VOLUME 89.2 fl (80-96); MEAN PLT VOLUME 8.9 fl (7.5-11.1); NEUT % 81.4 % (42.8-82.8); PLATELET COUNT 169 K/MM3 (134-434); PROTHROMBIN TIME (PATIENT) 12.5 SEC (9.7-13.0); RDW 14.9 % (11.9-15.9); WHITE BLOOD COUNT 13.7 K/mm3 (4.0-10.0)
[2019-04-21 07:13] LABS: ACTIVATED PTT 89.2 SECONDS (25.2-36.5)
[2019-04-21 07:30] LABS: ALBUMIN 3.4 g/dl (3.4-5.0); BILIRUBIN,TOTAL 0.6 mg/dL (0.2-1); BLOOD UREA NITROGEN 19.3 mg/dL (7-18); CALCIUM 8.5 mg/dL (8.5-10.1); CREATININE 1.3 mg/dL (0.55-1.3); MAGNESIUM 2.1 mg/dL (1.8-2.4); POTASSIUM 4.4 mmol/L (3.5-5.1); TOT PROT 6.6 g/dl (6.4-8.2)
--- NOTE | 2019-04-21 08:10 | PN ---
Progress Note (short form) - Note Progress Note: Anesthesia Pt seen and examined S:Alert and awake, comfortable O; Vital Signs Temperature 98.0 F 04/20/19 15:04 Pulse Rate 64 04/21/19 06:00 Respiratory Rate 14 04/21/19 06:00 Blood Pressure 119/74 04/21/19 06:00 O2 Sat by Pulse Oximetry (%) 99 04/20/19 21:00 CBC, BMP 04/21/19 05:41 04/21/19 06:00 A/P s/p left Fem-Pop bypass Doing well post op Continue current care Henry Lopez MD
[2019-04-21] MEDS ORDERED: TAMSULOSIN HCL 0.4 MG CAP PO SCH (08:30)
[2019-04-21] MEDS ORDERED: ACETAMINOPHEN 325 MG TABLET (FP) ONE (09:24)
[2019-04-21] MEDS: MUPIROCIN 2% TOPICAL OINTMENT FOR DECOLONIZATION NS SCH ×2 (09:24→21:52)
[2019-04-21] MEDS ORDERED: amLODIPine BESYLATE 10 MG TABLET (FP) PO SCH (10:00)
[2019-04-21] MEDS ORDERED: FINASTERIDE 5 MG TABLET (FP) PO SCH (10:00)
[2019-04-21] MEDS ORDERED: ASPIRIN 81 MG CHEWABLE TABLETS PO SCH (10:00)
[2019-04-21] MEDS ORDERED: CLOPIDOGREL BISULFATE 75 MG TABLET (FP) PO SCH (10:00)
--- NOTE | 2019-04-21 10:27 | PN ---
Progress Note (short form) - Note Progress Note: POD#1 Pt without any complaints of pain today in his foot. No CP or SOB, No nausea. Vital Signs Period Temp Pulse Resp BP Sys/Malhotra Pulse Ox Last 24 Hr 98.0 F-98.3 F 59-103 13-20 119-166/74-99 99-100 GEN: A&0x3, NAD Left groin: no evidence of ecchymosis or masses. Inc c/d/i with prince. Foot warm to touch, PT pulse palpable. Neuro: dorsi flexion 5/5 b/l CBC, BMP 04/21/ 05:41 04/21/ 06:00 A/p: 68 yo male s/p Left fem/popliteal bypass with graft Pt doing well surgically, foot warm with palpable pulse. Continue aspirin Ordered PT May be oob/ambulate F/u with Dr. Washington as an outpatient
--- NOTE | 2019-04-21 11:03 | PN ---
Teaching Attending Note Name of Resident: Annita Buckley ATTENDING PHYSICIAN STATEMENT I saw and evaluated the patient. I reviewed the resident's note and discussed the case with the resident. I agree with the resident's findings and plan as documented. SUBJECTIVE: Patient seen and examined in the ICU. Awake and alert. Pain is controlled. No CP or SOB. Intake & Output 04/18/19 04/19/19 04/20/19 04/21/19 23:59 23:59 23:59 23:59 Intake Total 1200 100 Output Total 250 1800 Balance 950 -1700 Weight 135 lb 125 lb 4.8 oz Last Vital Signs Temp Pulse Resp BP Pulse Ox 98.0 F 68 16 127/81 99 04/20/19 15:04 04/21/19 09:25 04/21/19 09:25 04/21/19 09:25 04/21/19 09:00 Active Medications Acetaminophen (Tylenol -) 650 mg PO Q4H PRN PRN Reason: PAIN LEVEL 1-5 Last Admin: 04/21/19 09:30 Dose: 650 mg Amlodipine Besylate (Norvasc -) 10 mg PO DAILY [facility] Last Admin: 04/21/19 09:25 Dose: 10 mg Aspirin (Asa -) 81 mg PO DAILY [facility] Last Admin: 04/21/19 09:24 Dose: 81 mg Atorvastatin Calcium (Lipitor -) 10 mg PO HS [facility] Last Admin: 04/20/19 23:16 Dose: 10 mg Chlorhexidine Gluconate (Hibiclens For Decolonization -) 1 applic TP HS [facility] Last Admin: 04/20/19 23:16 Dose: 1 applic Finasteride (Proscar -) 5 mg PO DAILY [facility] Last Admin: 04/21/19 09:25 Dose: 5 mg Gabapentin (Neurontin -) 100 mg PO TID [facility] Last Admin: 04/21/19 06:48 Dose: 100 mg Morphine Sulfate (Morphine Sulfate) 2 mg IVPUSH Q6H PRN PRN Reason: PAIN LEVEL 6-10 Mupirocin (Bactroban Ointment (For Decolonization) -) 1 applic NS BID [facility] Stop: 04/25/19 21:59 Last Admin: 04/21/19 09:24 Dose: 1 applic Tamsulosin HCl (Flomax -) 0.4 mg PO 0830 [facility] Last Admin: 01/17/20 09:24 Dose: 0.4 mg GENERAL: Awake and alert, NAD HEAD: Normal with no signs of trauma. EYES: (-) Pallor (-) Icterus EARS, NOSE, THROAT: oropharynx clear without exudates. Moist mucous membranes. NECK: Normal range of motion, supple without lymphadenopathy, JVD, or masses. LUNGS: Breath sounds equal, clear to auscultation bilaterally. No wheezes, and no crackles. No accessory muscle use. HEART: S1S2 ABDOMEN: Soft, nontender, not distended, bowel sounds quiet s/p surgery, no guarding, no rebound, no masses. No hepatomegaly or splenomegaly. MUSCULOSKELETAL: Normal range of motion at all joints. No bony deformities or tenderness. No CVA tenderness. UPPER EXTREMITIES: 2+ pulses, warm, well-perfused. No cyanosis. No clubbing. Cap refill <2 seconds. No peripheral edema. LOWER EXTREMITIES: 1+ pulses on PT, absent on left DP and Right warm, well- perfused. No calf tenderness. No peripheral edema. PSYCHIATRIC: Cooperative. Good eye contact. Appropriate mood and affect. SKIN: Warm, dry, normal turgor, no rashes or lesions noted. Laboratory Results - last 24 hr 04/20/19 04/21/19 04/21/19 11:00 05:41 05:41 WBC 13.7 H RBC 4.30 Hgb 13.2 Hct 38.3 MCV 89.2 MCH 30.7 MCHC 34.4 RDW 14.9 Plt Count 169 MPV 8.9 Absolute Neuts (auto) 11.2 H Neutrophils % 81.4 D Lymphocytes % 8.4 D Monocytes % 10.0 Eosinophils % 0.0 D Basophils % 0.2 Nucleated RBC % 0 PT with INR 12.50 INR 1.06 PTT (Actin FS) 89.2 H Sodium Potassium Chloride Carbon Dioxide Anion Gap BUN Creatinine Est GFR (CKD-EPI)AfAm Est GFR (CKD-EPI)NonAf Random Glucose Calcium Phosphorus Magnesium Total Bilirubin AST ALT Alkaline Phosphatase Total Protein Albumin Blood Type B POSITIVE 04/21/19 06:00 WBC RBC Hgb Hct MCV MCH MCHC RDW Plt Count MPV Absolute Neuts (auto) Neutrophils % Lymphocytes % Monocytes % Eosinophils % Basophils % Nucleated RBC % PT with INR INR PTT (Actin FS) Sodium 136 Potassium 4.4 Chloride 102 Carbon Dioxide 28 Anion Gap 6 L BUN 19.3 H Creatinine 1.3 Est GFR (CKD-EPI)AfAm 65.90 Est GFR (CKD-EPI)NonAf 56.86 Random Glucose 101 Calcium 8.5 Phosphorus 4.0 Magnesium 2.1 Total Bilirubin 0.6 AST 18 ALT 21 Alkaline Phosphatase 62 Total Protein 6.6 Albumin 3.4 Blood Type ASSESSMENT/PLAN: POD#1:Left femoral/popliteal bypass with graft HTN HLD Polysubstance abuse (tobacco, EtOH, cocaine, marijuana) PAD Pain control O2 as needed Incentive Spirometry No smoking /illicit substances discussed BP Meds ASA / Plavix Floor Will need Rehab Dr Figueredo
--- NOTE | 2019-04-21 14:24 | PN ---
Physical Exam: SUBJECTIVE: Patient seen and examined in the morning. No acute events overnight , no events on cardiac monitoring. POD #1. No complaints of chest pain, shortness of breath, abdominal pain, nausea, vomiting, diarrhea. Has not had bowel movement since surgery. OBJECTIVE: Vital Signs Period Temp Pulse Resp BP Sys/Malhotra Pulse Ox Last 24 Hr 98.0 F-98.3 F 59-103 13-20 100-166/57-99 99-100 GENERAL: The patient is awake, alert, and fully oriented, in no acute distress. HEAD: Normal with no signs of trauma. EYES: PERRL, extraocular movements intact, sclera anicteric, conjunctiva clear. No ptosis. ENT: Ears normal, nares patent, oropharynx clear without exudates, moist mucous membranes. NECK: Trachea midline, full range of motion, supple. LUNGS: Breath sounds equal, clear to auscultation bilaterally, no wheezes, no crackles, no accessory muscle use. HEART: Regular rate and rhythm, S1, S2 without murmur, rub or gallop. ABDOMEN: Soft, nontender, nondistended, normoactive bowel sounds, no guarding, no rebound, no hepatosplenomegaly, no masses. EXTREMITIES: 2+ pulses, warm, well-perfused, no edema. Dressing in place in left groin, no discharge or bleeding through dressing. NEUROLOGICAL: Cranial nerves II through XII grossly intact. Normal speech, gait not observed. PSYCH: Normal mood, normal affect. SKIN: Warm, dry, normal turgor, no rashes or lesions noted Laboratory Results - last 24 hr 04/21/19 04/21/19 04/21/19 05:41 05:41 06:00 WBC 13.7 H RBC 4.30 Hgb 13.2 Hct 38.3 MCV 89.2 MCH 30.7 MCHC 34.4 RDW 14.9 Plt Count 169 MPV 8.9 Absolute Neuts (auto) 11.2 H Neutrophils % 81.4 D Lymphocytes % 8.4 D Monocytes % 10.0 Eosinophils % 0.0 D Basophils % 0.2 Nucleated RBC % 0 PT with INR 12.50 INR 1.06 PTT (Actin FS) 89.2 H Sodium 136 Potassium 4.4 Chloride 102 Carbon Dioxide 28 Anion Gap 6 L BUN 19.3 H Creatinine 1.3 Est GFR (CKD-EPI)AfAm 65.90 Est GFR (CKD-EPI)NonAf 56.86 Random Glucose 101 Calcium 8.5 Phosphorus 4.0 Magnesium 2.1 Total Bilirubin 0.6 AST 18 ALT 21 Alkaline Phosphatase 62 Total Protein 6.6 Albumin 3.4 Active Medications Generic Name Dose Route Start Last Admin Trade Name Freq PRN Reason Stop Dose Admin Acetaminophen 650 mg 04/21/19 14:13 Tylenol - PO Q4H PRN PAIN LEVEL 1-5 Amlodipine Besylate 10 mg 04/22/19 10:00 Norvasc - PO DAILY [facility] Aspirin 81 mg 04/22/19 10:00 Asa - PO DAILY [facility] Atorvastatin Calcium 10 mg 04/21/19 22:00 Lipitor - PO HS [facility] Chlorhexidine Gluconate 1 applic 04/21/19 22:00 Hibiclens For Decolonization - TP HS [facility] Clopidogrel Bisulfate 75 mg 04/22/19 10:00 Plavix - PO DAILY [facility] Finasteride 5 mg 04/22/19 10:00 Proscar - PO DAILY [facility] Gabapentin 100 mg 04/21/19 22:00 Neurontin - PO TID [facility] Morphine Sulfate 2 mg 04/21/19 14:13 Morphine Sulfate IVPUSH Q6H PRN PAIN LEVEL 6-10 Mupirocin 1 applic 04/21/19 22:00 Bactroban Ointment (For Decolonization) - NS 04/25/19 21:59 BID [facility] Tamsulosin HCl 0.4 mg 04/22/19 08:30 Flomax - PO 0830 [facility] ASSESSMENT/PLAN: 68 M PMH of HTN, HLD, PSA, PAD with 1 block R>L claudication s/p LLE Fem-pop bypass surgery for SFA occlusion. POD#1 Neuro -AAOx3 -Continue to monitor Cardiovascular -POD#1 -Hx of HTN, HLD, cocaine and tobacco use, claudication -Restarted on home BP meds -Plavix 75 mg PO Daily -ASA daily Pulmonary -Satting well on room air. Continuing to monitor GI -no GI complaints -stable ID -Afebrile, no ID symptoms -elevated WBC may be due to post surgical condition. Will continue to trend Renal -Disla out -Hx of BPH -Flomax 0.4 mg HS -Finasteride 5 mg F: Oral hydration E: Monitor CMP N: Sodium controlled diet DVT: SCDs Lines: Peripheral IVs Dispo: Transfer to medical/surgical floors. Pending transfer to SNF. Visit type - Emergency Visit Emergency Visit: No - New Patient This patient is new to me today: Yes Date on this admission: 04/21/19 - Critical Care Critical Care patient: Yes Total Critical Care Time (in minutes): 45 Critical Care Statement: The care of this patient involved high complexity decision making to prevent further life threatening deterioration of the patient 's condition and/or to evaluate & treat vital organ system(s) failure or risk of failure. ATTENDING PHYSICIAN STATEMENT I saw and evaluated the patient. I reviewed the resident's note and discussed the case with the resident. I agree with the resident's findings and plan as documented. SUBJECTIVE: OBJECTIVE: ASSESSMENT AND PLAN:
[2019-04-21] MEDS: ATORVASTATIN CA 10 MG TABLET (FP) PO SCH (21:53)
[2019-04-21] MEDS: MORPHINE SULFATE 2 MG/ML VIAL IVPUSH PRN (21:57)
[2019-04-21] MEDS ORDERED: CHLORHEXIDINE GLUCONATE 4% CLEANSER FOR DECOLONIZATION TP SCH (22:00)
[2019-04-22] MEDS: MORPHINE SULFATE 2 MG/ML VIAL IVPUSH PRN ×2 (04:17→18:03)
[2019-04-22] MEDS: GABAPENTIN 100 MG CAPSULE PO SCH ×4 (05:47→21:46)
--- NOTE | 2019-04-22 08:27 | CONSULT ---
Consult Consult Specialty:: medicine Referred by:: Christ Washington Reason for Consultation:: medical mangaement - History Source History Provided By: Patient - Past Medical History Cardio/Vascular: Yes: HTN Gastrointestinal: Yes: GERD Renal/: Yes: BPH - Past Surgical History Past Surgical History: Yes: Bypass, Hernia Repair - Alcohol/Substance Use Hx Alcohol Use: Yes (3-4 beers/day) - Smoking History Smoking history: Current every day smoker Have you smoked in the past 12 months: Yes Aproximately how many cigarettes per day: 10 Home Medications - Allergies Allergies/Adverse Reactions: Allergies Allergy/AdvReac Type Severity Reaction Status Date / Time No Known Allergies Allergy Verified 04/20/19 09:25 - Home Medications Home Medications: Ambulatory Orders Amlodipine Besylate 1 tab PO DAILY 05/31/17 Finasteride 1 tab PO DAILY 05/31/17 Gabapentin 1 tab PO TID 05/31/17 Multivitamin [Multiple Vitamins] 1 tab PO DAILY 05/31/17 Omeprazole 40 mg PO DAILY 05/31/17 Tamsulosin HCl 1 tab PO DAILY 05/31/17 Aspirin [ASA -] 81 mg PO DAILY 01/07/18 Simvastatin [Zocor -] 20 mg PO HS 01/07/18 Physical Exam Vital Signs: Vital Signs Temperature 97.8 F 04/22/19 05:36 Pulse Rate 80 04/22/19 05:36 Respiratory Rate 20 04/22/19 05:36 Blood Pressure 113/70 04/22/19 05:36 O2 Sat by Pulse Oximetry (%) 97 04/21/19 21:00 Labs: CBC, BMP 04/21/19 05:41 04/21/19 06:00
--- NOTE | 2019-04-22 08:37 | CONSULT ---
Consultation: REQUESTING PROVIDER: Dr Christ Washington CONSULT REQUEST: We have been asked to medically evaluate this patient for medical management HISTORY OF PRESENT ILLNESS: REVIEW OF SYSTEMS: CONSTITUTIONAL: Absent: fever, chills, diaphoresis, generalized weakness, malaise, loss of appetite, weight change HEENT: Absent: rhinorrhea, nasal congestion, throat pain, throat swelling, difficulty swallowing, mouth swelling, ear pain, eye pain, visual changes CARDIOVASCULAR: Absent: chest pain, syncope, palpitations, irregular heart rate, lightheadedness , peripheral edema RESPIRATORY: Absent: cough, shortness of breath, dyspnea with exertion, orthopnea, wheezing, stridor, hemoptysis GASTROINTESTINAL: Absent: abdominal pain, abdominal distension, nausea, vomiting, diarrhea, constipation, melena, hematochezia GENITOURINARY: Absent: dysuria, frequency, urgency, hesitancy, hematuria, flank pain, genital pain MUSCULOSKELETAL: Absent: myalgia, arthralgia, joint swelling, back pain, neck pain SKIN: Absent: rash, itching, pallor. HEMATOLOGIC/IMMUNOLOGIC: Absent: easy bleeding, easy bruising, lymphadenopathy, frequent infections ENDOCRINE: Absent: unexplained weight gain, unexplained weight loss, heat intolerance, cold intolerance NEUROLOGIC: Absent: headache, focal weakness or paresthesias, dizziness, unsteady gait, seizure, mental status changes, bladder or bowel incontinence PSYCHIATRIC: Absent: anxiety, depression, suicidal or homicidal ideation, hallucinations. PHYSICAL EXAMINATION Vital Signs - 24 hr 04/21/19 04/21/19 04/21/19 09:00 09:25 13:00 Temperature Pulse Rate 68 59 L Respiratory 16 16 16 Rate Blood Pressure 127/81 100/57 L O2 Sat by Pulse 99 Oximetry (%) 04/21/19 04/21/19 04/21/19 15:00 20:43 21:00 Temperature 98.5 F 99 F Pulse Rate 86 90 Respiratory 18 19 20 Rate Blood Pressure 144/88 120/70 O2 Sat by Pulse 95 97 Oximetry (%) 04/21/19 04/22/19 23:00 05:36 Temperature 98.7 F 97.8 F Pulse Rate 88 80 Respiratory 20 20 Rate Blood Pressure 126/72 113/70 O2 Sat by Pulse Oximetry (%) GENERAL: Awake, alert, and fully oriented, in no acute distress. HEAD: Normal with no signs of trauma. EYES: Pupils equal, round and reactive to light, extraocular movements intact, sclera anicteric, conjunctiva clear. No lid lag. EARS, NOSE, THROAT: Ears normal, nares patent, oropharynx clear without exudates. Moist mucous membranes. NECK: Normal range of motion, supple without lymphadenopathy, JVD, or masses. LUNGS: Breath sounds equal, clear to auscultation bilaterally. No wheezes, and no crackles. No accessory muscle use. HEART: Regular rate and rhythm, normal S1 and S2 without murmur, rub or gallop. ABDOMEN: Soft, nontender, not distended, normoactive bowel sounds, no guarding, no rebound, no masses. No hepatomegaly or splenomegaly. MUSCULOSKELETAL: Normal range of motion at all joints. No bony deformities or tenderness. No CVA tenderness. UPPER EXTREMITIES: 2+ pulses, warm, well-perfused. No cyanosis. No clubbing. Cap refill <2 seconds. No peripheral edema. LOWER EXTREMITIES: 2+ pulses, warm, well-perfused. No calf tenderness. No peripheral edema. dressing c/d/i to left groin NEUROLOGICAL: Cranial nerves II-XII intact. Normal speech. Normal gait. PSYCHIATRIC: Cooperative. Good eye contact. Appropriate mood and affect. SKIN: Warm, dry, normal turgor, no rashes or lesions noted. Active Medications Generic Name Dose Route Start Last Admin Trade Name Freq PRN Reason Stop Dose Admin Acetaminophen 650 mg 04/21/19 14:13 Tylenol - PO Q4H PRN PAIN LEVEL 1-5 Amlodipine Besylate 10 mg 04/22/19 10:00 Norvasc - PO DAILY [facility] Aspirin 81 mg 04/22/19 10:00 Asa - PO DAILY [facility] Atorvastatin Calcium 10 mg 04/21/19 22:00 04/21/19 21:53 Lipitor - PO 10 mg HS KELLIE Administration Chlorhexidine Gluconate 1 applic 04/21/19 22:00 04/21/19 21:52 Hibiclens For Decolonization - TP Not Given HS KELLIE Clopidogrel Bisulfate 75 mg 04/22/19 10:00 Plavix - PO DAILY KELLIE Finasteride 5 mg 04/22/19 10:00 Proscar - PO DAILY KELLIE Gabapentin 100 mg 04/21/19 14:00 04/22/19 05:47 Neurontin - PO 100 mg TID KELLIE Administration Morphine Sulfate 2 mg 04/21/19 14:13 04/22/19 04:17 Morphine Sulfate IVPUSH 2 mg Q6H PRN Administration PAIN LEVEL 6-10 Mupirocin 1 applic 04/21/19 22:00 04/21/19 21:52 Bactroban Ointment (For Decolonization) - NS 04/25/19 21:59 Not Given BID KELLIE Tamsulosin HCl 0.4 mg 04/22/19 08:30 Flomax - PO 0830 KELLIE ASSESSMENT/PLAN: Dispo: We will continue to follow the patient. Thank you for this consultative opportunity. Problem List - Problems (1) HTN (hypertension) Assessment/Plan: normotensive c/w norvasc Code(s): I10 - ESSENTIAL (PRIMARY) HYPERTENSION (2) Prophylactic measure Assessment/Plan: FEN Fluids: adequate PO intake Electrolytes: monitor & replete as needed Nutrition: low sodium diet DVT moderate risk c/w plavix, asa Dispo Maintain as inpatient full code discharge planning to home/SNF Code(s): Z29.9 - ENCOUNTER FOR PROPHYLACTIC MEASURES, UNSPECIFIED (3) HLD (hyperlipidemia) Assessment/Plan: c/w atorvastatin Code(s): E78.5 - HYPERLIPIDEMIA, UNSPECIFIED (4) Smoker Assessment/Plan: currently smoking, 1ppd x 30 years counseled on cessation Code(s): F17.200 - NICOTINE DEPENDENCE, UNSPECIFIED, UNCOMPLICATED (5) Crack cocaine use Assessment/Plan: admitts to smoking crack cocaine a few days prior to surgery offered to see lubricating specialist here and declined consoled on cessation Code(s): F14.90 - COCAINE USE, UNSPECIFIED, UNCOMPLICATED (6) Peripheral arterial disease Assessment/Plan: s/p fem-pop bypass POD #1 Code(s): I73.9 - PERIPHERAL VASCULAR DISEASE, UNSPECIFIED (7) Constipation Assessment/Plan: daily BM at home miralax qd encourage PO fluids Code(s): K59.00 - CONSTIPATION, UNSPECIFIED Visit type - Emergency Visit Emergency Visit: No - New Patient This patient is new to me today: Yes Date on this admission: 04/22/19 - Critical Care Critical Care patient: No
[2019-04-22] MEDS: ACETAMINOPHEN 325 MG TABLET (FP) PO PRN (08:54)
[2019-04-22] MEDS: TAMSULOSIN HCL 0.4 MG CAP PO SCH (08:55)
[2019-04-22] MEDS: FINASTERIDE 5 MG TABLET (FP) PO SCH (09:08)
[2019-04-22] MEDS: CLOPIDOGREL BISULFATE 75 MG TABLET (FP) PO SCH (09:08)
[2019-04-22] MEDS: MUPIROCIN 2% TOPICAL OINTMENT FOR DECOLONIZATION NS SCH (09:08)
[2019-04-22] MEDS: amLODIPine BESYLATE 10 MG TABLET (FP) PO SCH (09:08)
[2019-04-22] MEDS: ASPIRIN 81 MG CHEWABLE TABLETS PO SCH (09:08)
[2019-04-22 10:55] LABS: ALBUMIN 3.1 g/dl (3.4-5.0); BILIRUBIN,TOTAL 0.5 mg/dL (0.2-1); BLOOD UREA NITROGEN 15.9 mg/dL (7-18); CALCIUM 8.6 mg/dL (8.5-10.1); CREATININE 1.1 mg/dL (0.55-1.3); POTASSIUM 3.9 mmol/L (3.5-5.1); TOT PROT 6.3 g/dl (6.4-8.2)
[2019-04-22 11:00] LABS: BASO % 0.2 % (0-2.0); EOS % 0.1 % (0-4.5); HEMATOCRIT 37.5 % (35.4-49); HEMOGLOBIN 12.7 GM/dL (11.7-16.9); LYMPH % 12.1 % (8-40); MCH 30.9 pg (25.7-33.7); MCHC 33.9 g/dl (32.0-35.9); MEAN CELL VOLUME 91.1 fl (80-96); MEAN PLT VOLUME 9.2 fl (7.5-11.1); MONO % 11.8 % (3.8-10.2); NEUT % 75.8 % (42.8-82.8); PLATELET COUNT 152 K/MM3 (134-434); RBC 4.11 M/mm3 (4.00-5.60); RDW 14.9 % (11.9-15.9); WHITE BLOOD COUNT 10.6 K/mm3 (4.0-10.0)
[2019-04-22] MEDS: POLYETHYLENE GLYCOL 3350 119 GM BTL PO SCH (14:56)
[2019-04-22] MEDS: ATORVASTATIN CA 10 MG TABLET (FP) PO SCH (21:46)
[2019-04-22] MEDS: DOCUSATE SODIUM 100 MG CAPSULE (FP) PO SCH (21:46)
[2019-04-23] MEDS: ACETAMINOPHEN 325 MG TABLET (FP) PO PRN ×3 (02:31→21:34)
[2019-04-23] MEDS: GABAPENTIN 100 MG CAPSULE PO SCH ×3 (05:51→21:35)
--- NOTE | 2019-04-23 07:53 | CONSULT ---
Consultation: REQUESTING PROVIDER: CONSULT REQUEST: We have been asked to medically evaluate this patient for ( specify). HISTORY OF PRESENT ILLNESS: REVIEW OF SYSTEMS: CONSTITUTIONAL: Absent: fever, chills, diaphoresis, generalized weakness, malaise, loss of appetite, weight change HEENT: Absent: rhinorrhea, nasal congestion, throat pain, throat swelling, difficulty swallowing, mouth swelling, ear pain, eye pain, visual changes CARDIOVASCULAR: Absent: chest pain, syncope, palpitations, irregular heart rate, lightheadedness , peripheral edema RESPIRATORY: Absent: cough, shortness of breath, dyspnea with exertion, orthopnea, wheezing, stridor, hemoptysis GASTROINTESTINAL: Absent: abdominal pain, abdominal distension, nausea, vomiting, diarrhea, constipation, melena, hematochezia GENITOURINARY: Absent: dysuria, frequency, urgency, hesitancy, hematuria, flank pain, genital pain MUSCULOSKELETAL: Absent: myalgia, arthralgia, joint swelling, back pain, neck pain SKIN: Absent: rash, itching, pallor HEMATOLOGIC/IMMUNOLOGIC: Absent: easy bleeding, easy bruising, lymphadenopathy, frequent infections ENDOCRINE: Absent: unexplained weight gain, unexplained weight loss, heat intolerance, cold intolerance NEUROLOGIC: Absent: headache, focal weakness or paresthesias, dizziness, unsteady gait, seizure, mental status changes, bladder or bowel incontinence PSYCHIATRIC: Absent: anxiety, depression, suicidal or homicidal ideation, hallucinations. PHYSICAL EXAMINATION Vital Signs - 24 hr 04/22/19 04/22/19 04/22/19 08:49 08:59 15:19 Temperature 97.7 F 98.2 F Pulse Rate 89 96 H Respiratory 19 19 18 Rate Blood Pressure 136/79 116/74 O2 Sat by Pulse 94 L Oximetry (%) 04/22/19 04/22/19 04/23/19 21:00 22:29 01:45 Temperature 97.9 F 98.3 F Pulse Rate 98 H Respiratory 18 20 20 Rate Blood Pressure 121/81 126/73 O2 Sat by Pulse 95 Oximetry (%) 04/23/19 06:00 Temperature 98.1 F Pulse Rate 88 Respiratory 20 Rate Blood Pressure 122/72 O2 Sat by Pulse Oximetry (%) GENERAL: Awake, alert, and fully oriented, in no acute distress. HEAD: Normal with no signs of trauma. EYES: Pupils equal, round and reactive to light, extraocular movements intact, sclera anicteric, conjunctiva clear. No lid lag. EARS, NOSE, THROAT: Ears normal, nares patent, oropharynx clear without exudates. Moist mucous membranes. NECK: Normal range of motion, supple without lymphadenopathy, JVD, or masses. LUNGS: Breath sounds equal, clear to auscultation bilaterally. No wheezes, and no crackles. No accessory muscle use. HEART: Regular rate and rhythm, normal S1 and S2 without murmur, rub or gallop. ABDOMEN: Soft, nontender, not distended, normoactive bowel sounds, no guarding, no rebound, no masses. No hepatomegaly or splenomegaly. MUSCULOSKELETAL: Normal range of motion at all joints. No bony deformities or tenderness. No CVA tenderness. UPPER EXTREMITIES: 2+ pulses, warm, well-perfused. No cyanosis. No clubbing. Cap refill <2 seconds. No peripheral edema. LOWER EXTREMITIES: 2+ pulses, warm, well-perfused. No calf tenderness. No peripheral edema. NEUROLOGICAL: Cranial nerves II-XII intact. Normal speech. Normal gait. PSYCHIATRIC: Cooperative. Good eye contact. Appropriate mood and affect. SKIN: Warm, dry, normal turgor, no rashes or lesions noted. Laboratory Results - last 24 hr 04/22/19 04/22/19 10:04 10:04 WBC 10.6 H RBC 4.11 Hgb 12.7 Hct 37.5 MCV 91.1 MCH 30.9 MCHC 33.9 RDW 14.9 Plt Count 152 MPV 9.2 Absolute Neuts (auto) 8.0 Neutrophils % 75.8 Lymphocytes % 12.1 D Monocytes % 11.8 H Eosinophils % 0.1 D Basophils % 0.2 Nucleated RBC % 0 Sodium 135 L Potassium 3.9 Chloride 100 Carbon Dioxide 30 Anion Gap 5 L BUN 15.9 Creatinine 1.1 Est GFR (CKD-EPI)AfAm 80.65 Est GFR (CKD-EPI)NonAf 69.58 Random Glucose 133 H Calcium 8.6 Magnesium 2.0 Total Bilirubin 0.5 AST 15 ALT 19 Alkaline Phosphatase 57 Total Protein 6.3 L Albumin 3.1 L Active Medications Generic Name Dose Route Start Last Admin Trade Name Freq PRN Reason Stop Dose Admin Acetaminophen 650 mg 04/21/19 14:13 04/23/19 02:31 Tylenol - PO 650 mg Q4H PRN Administration PAIN LEVEL 1-5 Amlodipine Besylate 10 mg 04/22/19 10:00 04/22/19 09:08 Norvasc - PO 10 mg DAILY KELLIE Administration Aspirin 81 mg 04/22/19 10:00 04/22/19 09:08 Asa - PO 81 mg DAILY KELLIE Administration Atorvastatin Calcium 10 mg 04/21/19 22:00 04/22/19 21:46 Lipitor - PO 10 mg HS KELLIE Administration Clopidogrel Bisulfate 75 mg 04/22/19 10:00 04/22/19 09:08 Plavix - PO 75 mg DAILY KELLIE Administration Docusate Sodium 300 mg 04/22/19 22:00 04/22/19 21:46 Colace - PO 300 mg HS KELLIE Administration Finasteride 5 mg 04/22/19 10:00 04/22/19 09:08 Proscar - PO 5 mg DAILY KELLIE Administration Gabapentin 100 mg 04/21/19 14:00 04/23/19 05:51 Neurontin - PO 100 mg TID KELLIE Administration Morphine Sulfate 2 mg 04/21/19 14:13 04/22/19 18:03 Morphine Sulfate IVPUSH 2 mg Q6H PRN Administration PAIN LEVEL 6-10 Polyethylene Glycol 17 gm 04/22/19 12:15 04/22/19 14:56 Miralax (For Daily Use) - PO 17 gm DAILY KELLIE Administration Tamsulosin HCl 0.4 mg 04/22/19 08:30 04/22/19 08:55 Flomax - PO 0.4 mg 0830 KELLIE Administration ASSESSMENT/PLAN: Dispo: We will continue to follow the patient. Thank you for this consultative opportunity. Problem List - Problems (1) HTN (hypertension) Code(s): I10 - ESSENTIAL (PRIMARY) HYPERTENSION (2) Prophylactic measure Code(s): Z29.9 - ENCOUNTER FOR PROPHYLACTIC MEASURES, UNSPECIFIED (3) HLD (hyperlipidemia) Code(s): E78.5 - HYPERLIPIDEMIA, UNSPECIFIED (4) Smoker Code(s): F17.200 - NICOTINE DEPENDENCE, UNSPECIFIED, UNCOMPLICATED (5) Crack cocaine use Code(s): F14.90 - COCAINE USE, UNSPECIFIED, UNCOMPLICATED (6) Peripheral arterial disease Code(s): I73.9 - PERIPHERAL VASCULAR DISEASE, UNSPECIFIED (7) Constipation Code(s): K59.00 - CONSTIPATION, UNSPECIFIED
--- NOTE | 2019-04-23 07:59 | PN ---
Progress Note, Physician Chief Complaint: Had BM this morning. Ambulating the alvarez with PT. Minimal c.o pain to groin History of Present Illness: 68 y/o M with PMH of HTN, HLD, polysubstance abuse (tobacco, EtOH, cocaine, marijuana), PAD with 1 block R>L claudication S/P Fem-pop bypass Pt is active smoker (1/2 PPD) and continues to used cocaine with last use 3 days ago. We have been asked to medically evaluate this patient for medical management by Dr Washington. - Current Medication List Current Medications: Active Medications Acetaminophen (Tylenol -) 650 mg PO Q4H PRN PRN Reason: PAIN LEVEL 1-5 Last Admin: 04/23/19 02:31 Dose: 650 mg Amlodipine Besylate (Norvasc -) 10 mg PO DAILY [facility] Last Admin: 04/22/19 09:08 Dose: 10 mg Aspirin (Asa -) 81 mg PO DAILY [facility] Last Admin: 04/22/19 09:08 Dose: 81 mg Atorvastatin Calcium (Lipitor -) 10 mg PO HS [facility] Last Admin: 04/22/19 21:46 Dose: 10 mg Clopidogrel Bisulfate (Plavix -) 75 mg PO DAILY [facility] Last Admin: 04/22/19 09:08 Dose: 75 mg Docusate Sodium (Colace -) 300 mg PO HS [facility] Last Admin: 04/22/19 21:46 Dose: 300 mg Finasteride (Proscar -) 5 mg PO DAILY [facility] Last Admin: 04/22/19 09:08 Dose: 5 mg Gabapentin (Neurontin -) 100 mg PO TID [facility] Last Admin: 04/23/19 05:51 Dose: 100 mg Morphine Sulfate (Morphine Sulfate) 2 mg IVPUSH Q6H PRN PRN Reason: PAIN LEVEL 6-10 Last Admin: 04/22/19 18:03 Dose: 2 mg Polyethylene Glycol (Miralax (For Daily Use) -) 17 gm PO DAILY [facility] Last Admin: 04/22/19 14:56 Dose: 17 gm Tamsulosin HCl (Flomax -) 0.4 mg PO 0830 [facility] Last Admin: 04/22/19 08:55 Dose: 0.4 mg - Objective Vital Signs: Vital Signs Temperature 98.1 F 04/23/19 06:00 Pulse Rate 88 04/23/19 06:00 Respiratory Rate 20 04/23/19 06:00 Blood Pressure 122/72 04/23/19 06:00 O2 Sat by Pulse Oximetry (%) 95 04/22/19 21:00 Additional Findings/Remarks: GENERAL: Awake, alert, and fully oriented, in no acute distress. HEAD: Normal with no signs of trauma. EYES: Pupils equal, round and reactive to light, extraocular movements intact, sclera anicteric, conjunctiva clear. No lid lag. EARS, NOSE, THROAT: Ears normal, nares patent, oropharynx clear without exudates. Moist mucous membranes. NECK: Normal range of motion, supple without lymphadenopathy, JVD, or masses. LUNGS: Breath sounds equal, clear to auscultation bilaterally. No wheezes, and no crackles. No accessory muscle use. HEART: Regular rate and rhythm, normal S1 and S2 without murmur, rub or gallop. ABDOMEN: Soft, nontender, not distended, normoactive bowel sounds, no guarding, no rebound, no masses. No hepatomegaly or splenomegaly. MUSCULOSKELETAL: Normal range of motion at all joints. No bony deformities or tenderness. No CVA tenderness. UPPER EXTREMITIES: 2+ pulses, warm, well-perfused. No cyanosis. No clubbing. Cap refill <2 seconds. No peripheral edema. LOWER EXTREMITIES: 2+ pulses, warm, well-perfused. No calf tenderness. No peripheral edema. dressing c/d/i to left groin NEUROLOGICAL: Cranial nerves II-XII intact. Normal speech. Normal gait. PSYCHIATRIC: Cooperative. Good eye contact. Appropriate mood and affect. SKIN: Warm, dry, normal turgor, no rashes or lesions noted. Labs: CBC, BMP 04/22/19 10:04 04/22/19 10:04 INR, PTT INR 1.06 (0.83-1.09) 04/21/19 05:41 Problem List - Problems (1) HTN (hypertension) Assessment/Plan: normotensive c/w [facility] Code(s): I10 - ESSENTIAL (PRIMARY) HYPERTENSION (2) Prophylactic measure Assessment/Plan: FEN Fluids: adequate PO intake Electrolytes: monitor & replete as needed Nutrition: low sodium diet DVT moderate risk c/w plavix, asa Dispo Maintain as inpatient full code discharge planning to home/SNF We will continue to follow the patient. Thank you for this consultative opportunity. Code(s): Z29.9 - ENCOUNTER FOR PROPHYLACTIC MEASURES, UNSPECIFIED (3) HLD (hyperlipidemia) Assessment/Plan: c/w atorvastatin Code(s): E78.5 - HYPERLIPIDEMIA, UNSPECIFIED (4) Smoker Assessment/Plan: currently smoking, 1ppd x 30 years counseled on cessation Code(s): F17.200 - NICOTINE DEPENDENCE, UNSPECIFIED, UNCOMPLICATED (5) Crack cocaine use Assessment/Plan: decline to see customer service specialist here consoled on cessation Code(s): F14.90 - COCAINE USE, UNSPECIFIED, UNCOMPLICATED (6) Peripheral arterial disease Assessment/Plan: s/p fem-pop bypass POD #2 Code(s): I73.9 - PERIPHERAL VASCULAR DISEASE, UNSPECIFIED (7) Constipation Assessment/Plan: had BM this am c/w miralax qd encourage PO fluids Code(s): K59.00 - CONSTIPATION, UNSPECIFIED Visit type - Emergency Visit Emergency Visit: Yes ED Registration Date: 04/20/19 Care time: The patient presented to the Emergency Department on the above date and was hospitalized for further evaluation of their emergent condition. - New Patient This patient is new to me today: No - Critical Care Critical Care patient: No - Discharge Referral Referred to [facility] No
[2019-04-23] MEDS ORDERED: SENNOSIDES 8.6MG TABLET (FP) PO PRN (09:26)
[2019-04-23 09:38] LABS: BASO % 0.2 % (0-2.0); EOS % 0.4 % (0-4.5); HEMATOCRIT 37.9 % (35.4-49); LYMPH % 15.2 % (8-40); MCH 30.7 pg (25.7-33.7); MCHC 34.3 g/dl (32.0-35.9); MEAN CELL VOLUME 89.5 fl (80-96); MEAN PLT VOLUME 8.9 fl (7.5-11.1); MONO % 10.4 % (3.8-10.2); NEUT % 73.8 % (42.8-82.8); PLATELET COUNT 145 K/MM3 (134-434); RBC 4.23 M/mm3 (4.00-5.60); RDW 14.7 % (11.9-15.9); WHITE BLOOD COUNT 9.2 K/mm3 (4.0-10.0)
[2019-04-23] MEDS ORDERED: MAGNESIUM CITRATE 300 ML BOTTLE PO ONE (09:45)
[2019-04-23] MEDS: amLODIPine BESYLATE 10 MG TABLET (FP) PO SCH (09:56)
[2019-04-23] MEDS: POLYETHYLENE GLYCOL 3350 119 GM BTL PO SCH (09:56)
[2019-04-23] MEDS: ASPIRIN 81 MG CHEWABLE TABLETS PO SCH (09:56)
[2019-04-23] MEDS: TAMSULOSIN HCL 0.4 MG CAP PO SCH (09:56)
[2019-04-23] MEDS: CLOPIDOGREL BISULFATE 75 MG TABLET (FP) PO SCH (09:56)
[2019-04-23] MEDS: FINASTERIDE 5 MG TABLET (FP) PO SCH (09:56)
[2019-04-23 10:19] LABS: BILIRUBIN,TOTAL 0.5 mg/dL (0.2-1); BLOOD UREA NITROGEN 13.5 mg/dL (7-18); CALCIUM 8.4 mg/dL (8.5-10.1); CREATININE 1.1 mg/dL (0.55-1.3); TOT PROT 6.3 g/dl (6.4-8.2)
[2019-04-23] MEDS: ATORVASTATIN CA 10 MG TABLET (FP) PO SCH (21:36)
[2019-04-23] MEDS: DOCUSATE SODIUM 100 MG CAPSULE (FP) PO SCH (21:36)
[2019-04-24] MEDS: GABAPENTIN 100 MG CAPSULE PO SCH ×3 (05:10→21:50)
[2019-04-24 08:34] LABS: BASO % 0.4 % (0-2.0); EOS % 0.6 % (0-4.5); HEMATOCRIT 34.4 % (35.4-49); HEMOGLOBIN 11.8 GM/dL (11.7-16.9); LYMPH % 14.7 % (8-40); MCH 30.6 pg (25.7-33.7); MCHC 34.4 g/dl (32.0-35.9); MEAN CELL VOLUME 88.8 fl (80-96); MEAN PLT VOLUME 8.7 fl (7.5-11.1); MONO % 11.4 % (3.8-10.2); NEUT % 72.9 % (42.8-82.8); PLATELET COUNT 161 K/MM3 (134-434); RBC 3.87 M/mm3 (4.00-5.60); RDW 14.4 % (11.9-15.9); WHITE BLOOD COUNT 8.8 K/mm3 (4.0-10.0)
--- NOTE | 2019-04-24 08:53 | PN ---
Progress Note (short form) - Note Progress Note: Vascular surgery POD#4 Left fem pop bypass. Pt without any complaints of pain today in his foot. He is tolerating his diet and denies any fever, CP or SOB, No nausea. Vital Signs Temp 97.9 F 04/24/19 05:17 Pulse 77 04/24/19 05:17 Resp 20 04/24/19 05:17 BP 115/68 04/24/19 05:17 Pulse Ox 94 L 04/23/19 21:00 Intake & Output 04/23/19 04/23/19 04/24/19 11:59 23:59 11:59 Intake Total 200 1260 240 Output Total 600 Balance -400 1260 240 Weight 125 lb 126 lb Intake: Oral 200 700 240 Oral Supplement 560 Output: Urine 600 Void 600 Other: Voiding Method Toilet Toilet # Unmeasured Voids Disla 200 2 Void 3 Bowel Movement No No Weight Measurement Method Built in Bedscale Built in Bedscale CBC, BMP 04/24/19 07:30 GEN: A&0x3, NAD Left groin: dressing c/d/i with surrounding tissue intact, thigh soft, supple with mild TTP throughout, no evidence of hematoma or active bleeding, incision dressing c/d/i. b/l Feet are warm to touch, with + signal on PT pulses Neuro: dorsi flexion 5/5 b/l Problem List - Problems (1) Peripheral arterial disease Assessment/Plan: A/p: 68 yo male s/p Left fem/popliteal bypass with graft Pt doing well surgically, foot warm with palpable pulse. Continue aspirin continue Physical therapy D/c planning F/u with Dr. Washington as an outpatient Code(s): I73.9 - PERIPHERAL VASCULAR DISEASE, UNSPECIFIED
[2019-04-24 09:01] LABS: ALBUMIN 2.8 g/dl (3.4-5.0); BILIRUBIN,TOTAL 0.4 mg/dL (0.2-1); BLOOD UREA NITROGEN 16.4 mg/dL (7-18); CALCIUM 8.2 mg/dL (8.5-10.1); MAGNESIUM 2.6 mg/dL (1.8-2.4); POTASSIUM 4.5 mmol/L (3.5-5.1); TOT PROT 6.1 g/dl (6.4-8.2)
--- NOTE | 2019-04-24 09:12 | PN ---
Progress Note (short form) - Note Progress Note: Vascular Surgery Pt seen and examined. Left fem pop bypass. Palpable left PT pulse. Cont physical therapy. Please arrange for REhab. pt has three flights of stairs at home and has no help. Cont plavix. Anand Washington DO Problem List - Problems (1) Left leg claudication Code(s): I73.9 - PERIPHERAL VASCULAR DISEASE, UNSPECIFIED
[2019-04-24] MEDS: FINASTERIDE 5 MG TABLET (FP) PO SCH (09:22)
[2019-04-24] MEDS: ASPIRIN 81 MG CHEWABLE TABLETS PO SCH (09:22)
[2019-04-24] MEDS: CLOPIDOGREL BISULFATE 75 MG TABLET (FP) PO SCH (09:22)
[2019-04-24] MEDS: amLODIPine BESYLATE 10 MG TABLET (FP) PO SCH (09:23)
[2019-04-24] MEDS: TAMSULOSIN HCL 0.4 MG CAP PO SCH (09:23)
[2019-04-24] MEDS: POLYETHYLENE GLYCOL 3350 119 GM BTL PO SCH (09:23)
[2019-04-24] MEDS: ACETAMINOPHEN 325 MG TABLET (FP) PO PRN ×2 (09:23→20:19)
--- NOTE | 2019-04-24 17:47 | PN ---
Physical Exam: SUBJECTIVE: Patient seen and examined at the bedside. OBJECTIVE: Patient is a 68 y/o M with PMH of HTN, HLD, polysubstance abuse (tobacco, EtOH, cocaine, marijuana), PAD with 1 block R>L claudication S/P Fem-pop bypass Pt is active smoker (1/2 PPD). We have been asked to medically evaluate this patient for medical management by Dr Washington. Vital Signs Period Temp Pulse Resp BP Sys/Malhotra Pulse Ox Last 24 Hr 97.6 F-99.4 F 77-90 18-20 102-130/68-74 94-95 GENERAL: Awake, alert, and fully oriented, in no acute distress. HEAD: Normal with no signs of trauma. EYES: Pupils equal, round and reactive to light, extraocular movements intact, sclera anicteric, conjunctiva clear. No lid lag. EARS, NOSE, THROAT: Ears normal, nares patent, oropharynx clear without exudates. Moist mucous membranes. NECK: Normal range of motion, supple without lymphadenopathy, JVD, or masses. LUNGS: Breath sounds equal, clear to auscultation bilaterally. No wheezes, and no crackles. No accessory muscle use. HEART: Regular rate and rhythm, normal S1 and S2 without murmur, rub or gallop. ABDOMEN: Soft, nontender, not distended, normoactive bowel sounds, no guarding, no rebound, no masses. No hepatomegaly or splenomegaly. MUSCULOSKELETAL: Normal range of motion at all joints. No bony deformities or tenderness. No CVA tenderness. UPPER EXTREMITIES: 2+ pulses, warm, well-perfused. No cyanosis. No clubbing. Cap refill <2 seconds. No peripheral edema. LOWER EXTREMITIES: warm, No peripheral edema. dressing c/d/i to left groin NEUROLOGICAL: Normal speech. Normal gait. Laboratory Results - last 24 hr 04/24/19 04/24/19 07:30 07:30 WBC 8.8 RBC 3.87 L Hgb 11.8 Hct 34.4 L MCV 88.8 MCH 30.6 MCHC 34.4 RDW 14.4 Plt Count 161 MPV 8.7 Absolute Neuts (auto) 6.4 Neutrophils % 72.9 Lymphocytes % 14.7 Monocytes % 11.4 H Eosinophils % 0.6 Basophils % 0.4 Nucleated RBC % 0 Sodium 134 L Potassium 4.5 Chloride 101 Carbon Dioxide 30 Anion Gap 4 L BUN 16.4 Creatinine 1.0 Est GFR (CKD-EPI)AfAm 90.50 Est GFR (CKD-EPI)NonAf 78.08 Random Glucose 104 Calcium 8.2 L Magnesium 2.6 H Total Bilirubin 0.4 AST 25 ALT 37 Alkaline Phosphatase 57 Total Protein 6.1 L Albumin 2.8 L Active Medications Generic Name Dose Route Start Last Admin Trade Name Freq PRN Reason Stop Dose Admin Acetaminophen 650 mg 04/21/19 14:13 04/24/19 09:23 Tylenol - PO 650 mg Q4H PRN Administration PAIN LEVEL 1-5 Amlodipine Besylate 10 mg 04/22/19 10:00 04/24/19 09:23 Norvasc - PO 10 mg DAILY KELLIE Administration Aspirin 81 mg 04/22/19 10:00 04/24/19 09:22 Asa - PO 81 mg DAILY KELLIE Administration Atorvastatin Calcium 10 mg 04/21/19 22:00 04/23/19 21:36 Lipitor - PO 10 mg HS KELLIE Administration Clopidogrel Bisulfate 75 mg 04/22/19 10:00 04/24/19 09:22 Plavix - PO 75 mg DAILY KELLIE Administration Docusate Sodium 300 mg 04/22/19 22:00 04/23/19 21:36 Colace - PO 300 mg HS KELLIE Administration Finasteride 5 mg 04/22/19 10:00 04/24/19 09:22 Proscar - PO 5 mg DAILY KELLIE Administration Gabapentin 100 mg 04/21/19 14:00 04/24/19 14:36 Neurontin - PO 100 mg TID KELLIE Administration Polyethylene Glycol 17 gm 04/22/19 12:15 04/24/19 09:23 Miralax (For Daily Use) - PO 17 gm DAILY KELLIE Administration Senna 2 tab 04/23/19 09:26 Senna - PO HS PRN CONSTIPATION Tamsulosin HCl 0.4 mg 04/22/19 08:30 04/24/19 09:23 Flomax - PO 0.4 mg 0830 KELLIE Administration ASSESSMENT/PLAN: Problem List - Problems (1) Left leg claudication Assessment/Plan: s/p fem-pop bypass 04/20/2019. on plavix and asa vascular following, clear for d/c to snf Code(s): I73.9 - PERIPHERAL VASCULAR DISEASE, UNSPECIFIED (2) Constipation Assessment/Plan: on bowel regimen Code(s): K59.00 - CONSTIPATION, UNSPECIFIED (3) Crack cocaine use Code(s): F14.90 - COCAINE USE, UNSPECIFIED, UNCOMPLICATED (4) HLD (hyperlipidemia) Assessment/Plan: on statin therapy Code(s): E78.5 - HYPERLIPIDEMIA, UNSPECIFIED (5) HTN (hypertension) Assessment/Plan: bp stable. on norvasc Code(s): I10 - ESSENTIAL (PRIMARY) HYPERTENSION (6) Smoker Assessment/Plan: cessation discussed Code(s): F17.200 - NICOTINE DEPENDENCE, UNSPECIFIED, UNCOMPLICATED (7) Peripheral arterial disease Assessment/Plan: Code(s): I73.9 - PERIPHERAL VASCULAR DISEASE, UNSPECIFIED (8) Prophylactic measure Assessment/Plan: Fluids: adequate PO intake Electrolytes: monitor & replete as needed Nutrition: low sodium diet DVT moderate risk c/w plavix, asa Dispo Maintain as inpatient full code discharge planning to home/SNF We will continue to follow the patient. Thank you for this consultative opportunity. Code(s): Z29.9 - ENCOUNTER FOR PROPHYLACTIC MEASURES, UNSPECIFIED Visit type - Emergency Visit Emergency Visit: Yes ED Registration Date: 04/20/19 Care time: The patient presented to the Emergency Department on the above date and was hospitalized for further evaluation of their emergent condition. - New Patient This patient is new to me today: Yes Date on this admission: 04/24/19 - Critical Care Critical Care patient: No - Discharge Referral Referred to [facility] Med P.C.: No
[2019-04-24] MEDS: DOCUSATE SODIUM 100 MG CAPSULE (FP) PO SCH (21:50)
[2019-04-24] MEDS: ATORVASTATIN CA 10 MG TABLET (FP) PO SCH (21:51)
[2019-04-25] MEDS: ACETAMINOPHEN 325 MG TABLET (FP) PO PRN (05:58)
[2019-04-25] MEDS: GABAPENTIN 100 MG CAPSULE PO SCH ×2 (05:58→14:13)
[2019-04-25] MEDS: TAMSULOSIN HCL 0.4 MG CAP PO SCH (08:20)
[2019-04-25 08:53] LABS: BASO % 0.4 % (0-2.0); EOS % 1.1 % (0-4.5); HEMATOCRIT 34.2 % (35.4-49); HEMOGLOBIN 11.7 GM/dL (11.7-16.9); LYMPH % 14.8 % (8-40); MCH 30.7 pg (25.7-33.7); MCHC 34.2 g/dl (32.0-35.9); MEAN CELL VOLUME 89.8 fl (80-96); MEAN PLT VOLUME 8.5 fl (7.5-11.1); MONO % 10.6 % (3.8-10.2); NEUT % 73.1 % (42.8-82.8); PLATELET COUNT 182 K/MM3 (134-434); RBC 3.81 M/mm3 (4.00-5.60); RDW 14.5 % (11.9-15.9); WHITE BLOOD COUNT 8.9 K/mm3 (4.0-10.0)
[2019-04-25 09:22] LABS: ALBUMIN 2.7 g/dl (3.4-5.0); BILIRUBIN,TOTAL 0.4 mg/dL (0.2-1); BLOOD UREA NITROGEN 16.1 mg/dL (7-18); CALCIUM 8.4 mg/dL (8.5-10.1); CREATININE 1.1 mg/dL (0.55-1.3); POTASSIUM 4.5 mmol/L (3.5-5.1); TOT PROT 6.3 g/dl (6.4-8.2)
[2019-04-25] MEDS: FINASTERIDE 5 MG TABLET (FP) PO SCH (10:20)
[2019-04-25] MEDS: CLOPIDOGREL BISULFATE 75 MG TABLET (FP) PO SCH (10:20)
[2019-04-25] MEDS: ASPIRIN 81 MG CHEWABLE TABLETS PO SCH (10:20)
[2019-04-25] MEDS: amLODIPine BESYLATE 10 MG TABLET (FP) PO SCH (10:20)
[2019-04-25] MEDS: POLYETHYLENE GLYCOL 3350 119 GM BTL PO SCH (10:26)
--- NOTE | 2019-04-25 10:54 | PN ---
Progress Note (short form) - Note Progress Note: POD#5 Pt without complaints. No pain to the left leg/foot. No SOB, CP. Vital Signs Period Temp Pulse Resp BP Sys/Malhotra Pulse Ox Last 24 Hr 97.6 F-99.6 F 77-98 19-20 102-122/68-88 95 GEN: A&0x3, NAD CV; RRR Lungs: CTA b/l Left groin/thigh: inc c/d/i with prince. NO masses, erythema or drainage noted. Left foot warm. CBC, BMP 04/25/19 08:21 04/25/ 08:21 A/P: 68 yo male s/p Left fem popliteal bypass. Pt doing well, plan for discharge to home if able to walk stairs. Discharge paperwork completed, pt to resume aspirin and will need plavix to continue at home D/w Dr. Washington, pt needs follow up in the office in 1 week.
--- NOTE | 2019-04-25 12:12 | OP ---
DATE OF OPERATION: 04/20/2019 PREOPERATIVE DIAGNOSIS: Left lower extremity claudication. POSTOPERATIVE DIAGNOSIS: Left lower extremity claudication. PROCEDURE: Left femoral popliteal bypass with polytetrafluorethylene graft with angiogram. SURGEON: Anand Medina DO ANESTHESIA: General. BLOOD LOSS: 200 mL. INDICATIONS: Patient is a 68-year-old male that is a current smoker 1 pack a day and drug abuser who has less than 1-block claudication in his left lower extremity. Preoperative ultrasound and angiogram showed that he has an SFA occlusion that comes back in the distal SFA. Thereafter, the patient has a 1-vessel runoff in the form of PT into the foot. Patient went to Cardiology and Medicine and got the proper clearances for the operation. Patient then came in through Ambulatory Surgery. Patient is consented for the procedure understanding all risks, benefits, alternatives and was then taken into the operating room. DESCRIPTION OF PROCEDURE: Once in the operating room, was laid on the operating table in supine manner, and general anesthesia was administered to the patient. Disla catheter was placed. We then prepped and draped the entire left lower extremity in a sterile surgical manner. We then went ahead and made a 5-cm incision in the adductor canal area of the left lower extremity above the knee. Bovie electrocautery was used to control hemostasis, and we were able to get through all the subcutaneous tissue and get down to the muscle. We then placed a Weitlaner and retracted the muscle away and got down to the femoral sheath. The femoral sheath was then dissected, and we were able to dissect the distal femoral artery and vein. Using a right-angle clamp, we were able to dissect out the distal femoral artery, and Vessel Loops were placed around it. We then went to the groin, and above the crease, we made a 5-cm incision vertically. Bovie electrocautery was used to control hemostasis, and we were able to get down through all of the subcutaneous tissue and get down to the femoral sheath. Femoral sheath was then dissected, and we were able to dissect the common femoral artery and its bifurcation. We were able to place Vessel Loops around the deep profunda artery, the SFA, and the common femoral artery. At this point, this is where we opened a 6 x 80 PTFE graft. We then used our tunneler, and we went ahead and tunneled from the distal SFA up to the groin making sure that the tunneler was safely underneath the sartorius muscle. We then placed the PTFE graft in the tunneler, and we tunneled the graft through. We then went ahead and beveled our graft for the femoral region using scissors. We then went ahead and administered 5000 units of IV heparin to the patient. After 3 minutes, we got control on the common femoral artery, the profunda, and the SFA. We then went ahead and took a 15 blade and made an arteriotomy extending it to 1 cm, and 6-0 Prolene stay sutures were placed on the artery. We then went ahead and used 6-0 Prolene double arm on the graft and then set on the artery and ran the suture around to form anastomosis between the graft and the common femoral artery. Once completed, we opened the distal artery first and the proximal artery, and there was good flow in our PTFE graft. At this point, we clamped the graft, and we went to the distal SFA. We cut the graft to size and beveled it. We then went ahead and got distal and proximal control on our distal SFA. We then went ahead and used a 15 blade and made an arteriotomy and extended it with Martinez scissors to about 8 mm; 6-0 Prolene stay sutures were placed. We then went ahead and used a 6-0 Prolene double-arm on the graft and then set on the artery and ran the suture around to form an anastomosis between the artery and the graft. Once completed, we opened the distal artery first and the proximal artery and then the graft was opened. There was a good pulse in our artery at this point. We then went and irrigated both wounds copiously. We then went ahead and took a butterfly needle, and we went ahead and punctured the graft at the anastomosis and shot an angiogram of the left lower extremity showing that the graft was patent, the anastomoses were patent, and there was good flow into the PT, into the foot. At this point, no more intervention was needed. We removed our butterfly needle. Pressure was held in the area. Surgicel was placed. The wounds were well irrigated. Surgicel was placed around each anastomosis; 3-0 Vicryl was used, and the subcutaneous tissue was approximated in an interrupted manner for both incisions, and the skin was closed with skin prince. The area was wet and dried; 4 x 4 Tegaderms were placed. Patient tolerated the procedure with no complications. Patient had a good palpable pulse on the table for the PT, and patient was transferred to the ICU for surveillance. Total blood loss 200 mL. ANAND MEDINA DO [id number]
[2019-04-25 15:04] VITALS: BP 112/71; PULSE 83; TEMP 97.6
--- NOTE | 2019-04-25 15:57 | DS ---
Physical Exam: SUBJECTIVE: Patient seen and examined. Denies pain, malaise or any other discomfort. States he has help at home. OBJECTIVE: Patient is a 68 y/o M with PMH of HTN, HLD, polysubstance abuse (tobacco, EtOH, cocaine, marijuana), PAD with 1 block R>L claudication S/P Fem-pop bypass Pt is active smoker (1/2 PPD). Initial plan was to send patient to SNF, however, he did not qualify for this service. He will be sent home with close follow up with vascular. He was evaluated by physical therapy for gait training as well as stair training. Vital Signs Period Temp Pulse Resp BP Sys/Malhotra Pulse Ox Last 24 Hr 97.6 F-99.6 F 77-98 19-20 112-122/68-88 95-95 PHYSICAL EXAM GENERAL: Awake, alert, and fully oriented, in no acute distress. HEAD: Normal with no signs of trauma. EYES: Pupils equal, round and reactive to light, extraocular movements intact, sclera anicteric, conjunctiva clear. No lid lag. EARS, NOSE, THROAT: Ears normal, nares patent, oropharynx clear without exudates. Moist mucous membranes. NECK: Normal range of motion, supple without lymphadenopathy, JVD, or masses. LUNGS: Breath sounds equal, clear to auscultation bilaterally. No wheezes, and no crackles. No accessory muscle use. HEART: Regular rate and rhythm, normal S1 and S2 without murmur, rub or gallop. ABDOMEN: Soft, nontender, not distended, normoactive bowel sounds, no guarding, no rebound, no masses. No hepatomegaly or splenomegaly. MUSCULOSKELETAL: Normal range of motion at all joints. No bony deformities or tenderness. No CVA tenderness. UPPER EXTREMITIES: 2+ pulses, warm, well-perfused. No cyanosis. No clubbing. Cap refill <2 seconds. No peripheral edema. LOWER EXTREMITIES: warm, No peripheral edema. dressing c/d/i to left groin NEUROLOGICAL: Normal speech. Normal gait. LABS Laboratory Results - last 24 hr 04/25/19 04/25/19 08:21 08:21 WBC 8.9 RBC 3.81 L Hgb 11.7 Hct 34.2 L MCV 89.8 MCH 30.7 MCHC 34.2 RDW 14.5 Plt Count 182 MPV 8.5 Absolute Neuts (auto) 6.5 Neutrophils % 73.1 Lymphocytes % 14.8 Monocytes % 10.6 H Eosinophils % 1.1 D Basophils % 0.4 Nucleated RBC % 0 Sodium 135 L Potassium 4.5 Chloride 103 Carbon Dioxide 27 Anion Gap 5 L BUN 16.1 Creatinine 1.1 Est GFR (CKD-EPI)AfAm 80.65 Est GFR (CKD-EPI)NonAf 69.58 Random Glucose 114 H Calcium 8.4 L Total Bilirubin 0.4 AST 22 ALT 34 Alkaline Phosphatase 58 Total Protein 6.3 L Albumin 2.7 L HOSPITAL COURSE: Date of Admission:04/20/19 Date of Discharge: 04/25/19 Minutes to complete discharge: 45 Discharge Summary Problems reviewed: Yes Reason For Visit: LEFT LOWER EXTREMITY CLAUDICATION Current Active Problems Constipation (Acute) Crack cocaine use (Acute) HLD (hyperlipidemia) (Acute) HTN (hypertension) (Acute) Prophylactic measure (Acute) Smoker (Acute) Condition: Good - Instructions Diet, Activity, Other Instructions: Post-operative Instructions Wound: Keep your dressings clean and dry and in place for 24 hours. You may shower in 24 hours. When showering allow soap and water to run over the incision, do not scrub the incision, pat dry well after showering. Check the incision daily after removal of the dressing for redness or drainage. If you note any redness or drainage, contact your surgeon immediately. Do not swim or soak in water (bath/hot tub, etc) until cleared by your surgeon as this can lead to infection. Do not put creams or ointments on the wound until cleared by your surgeon. Diet: You may resume your regular diet unless otherwise instructed by your physician. Increase your fiber intake if taking narcotic pain medications as constipation is a common side effect. Pain Relief: Take pain medication as prescribed. Do not drive, drink alcohol or operate heavy machinery while taking narcotic pain medications. The pain medication you have been prescribed for pain contains Acetaminophen (Tylenol), do not take additional Tylenol with this pain medication. You should not exceed more than 4g (4000mg) of Tylenol in 24 hours as this can lead to liver damage or failure. You have been prescribed an anticoagulant, ASPIRIN AND PLAVIX. Take this medication as prescribed everyday. Do not skip any doses. Contact your surgeon if you have any issues tolerating the medication. Do not stop taking this medication without speaking to your surgeon first. Activity: No heavy lifting (greater than 5 pounds), no strenuous activity until cleared by your surgeon. The best exercise is walking. It is best to stay mobile to avoid development of blood clots in your legs. Follow-up Please call the office to schedule your follow up appointment in 2 weeks. Call your doctors office or go to the ER immediately if you develop: Trouble breathing, chest tightness or shortness of breath Oral temperature greater than 100.5 F Excessive redness, swelling, or drainage at the incision site. Foul odor from the incision. New, increasing pain/numbness/weakness or coolness in your leg. Disposition: HOME - Home Medications Comprehensive Discharge Medication List: Ambulatory Orders Amlodipine Besylate 1 tab PO DAILY 05/31/17 Finasteride 1 tab PO DAILY 05/31/17 Gabapentin 1 tab PO TID 05/31/17 Multivitamin [Multiple Vitamins] 1 tab PO DAILY 05/31/17 Omeprazole 40 mg PO DAILY 05/31/17 Tamsulosin HCl 1 tab PO DAILY 05/31/17 Aspirin [ASA -] 81 mg PO DAILY 01/07/18 Simvastatin [Zocor -] 20 mg PO HS 01/07/18 Clopidogrel Bisulfate [Plavix -] 75 mg PO DAILY #30 tablet 04/25/19 Problem List - Problems (1) Left leg claudication Assessment/Plan: s/p fem-pop bypass 04/20/2019. on plavix and asa vascular following, clear for discharge Code(s): I73.9 - PERIPHERAL VASCULAR DISEASE, UNSPECIFIED (2) Constipation Assessment/Plan: on bowel regimen Code(s): K59.00 - CONSTIPATION, UNSPECIFIED (3) Crack cocaine use Code(s): F14.90 - COCAINE USE, UNSPECIFIED, UNCOMPLICATED (4) HLD (hyperlipidemia) Assessment/Plan: on statin therapy Code(s): E78.5 - HYPERLIPIDEMIA, UNSPECIFIED (5) HTN (hypertension) Assessment/Plan: bp stable. on norvasc Code(s): I10 - ESSENTIAL (PRIMARY) HYPERTENSION (6) Smoker Assessment/Plan: cessation discussed Code(s): F17.200 - NICOTINE DEPENDENCE, UNSPECIFIED, UNCOMPLICATED (7) Peripheral arterial disease Code(s): I73.9 - PERIPHERAL VASCULAR DISEASE, UNSPECIFIED (8) Prophylactic measure Assessment/Plan: discharge home Code(s): Z29.9 - ENCOUNTER FOR PROPHYLACTIC MEASURES, UNSPECIFIED This patient is new to me today: No Emergency Visit: Yes ED Registration Date: 04/20/19 Care time: The patient presented to the Emergency Department on the above date and was hospitalized for further evaluation of their emergent condition. Critical Care patient: No - Discharge Referral Referred to [facility] Med P.C.: No
== END 2019-04-25 18:00 | disposition home or self-care (01) | DRG 254 ==
LOC: JSAMEDAYSX 08:30 → JICU 14:18 → J6S 04-21 14:57
PROVIDERS: ADMIT Surgery Vascular Surgery; ATTEND Nurse Practitioner Family
PROC: B40DYZZ Plain Radiography of Aorta and Bilateral Lower Extremity Arteries using Other Contrast (ICD-10-PCS; 2019-04-20)
PROC: 041L0KJ Bypass Left Femoral Artery to Left Femoral Artery with Nonautologous Tissue Substitute, Open Approach (ICD-10-PCS; principal; 2019-04-20 10:00)
DX: I73.89 Other specified peripheral vascular diseases (principal); I10 Essential (primary) hypertension; K21.9 Gastro-esophageal reflux disease without esophagitis; N40.0 Benign prostatic hyperplasia without lower urinary tract symptoms; F17.210 Nicotine dependence, cigarettes, uncomplicated; F12.10 Cannabis abuse, uncomplicated; F14.10 Cocaine abuse, uncomplicated; E78.5 Hyperlipidemia, unspecified; K59.00 Constipation, unspecified
CPT/HCPCS: 36415; 76000-TC-FY; 80053; 83735; 84100; 85025; 85610; 85730; 86850; 86900; 86901; 97116-GP; 97162-GP; J1644

== ENCOUNTER 2019-12-07 04:37 | Day surgery (SDC) | payer MEDICARE, OTHER ==
[2019-12-06 16:37] VITALS: BMI 29.1
[2019-12-07] MEDS ORDERED: LIDOCAINE HCL 1%, 10 MG/ML (20ML VIAL) ONE (10:27)
--- NOTE | 2019-12-07 11:09 | HP ---
Admitting History and Physical - Admission Chief Complaint: Left lower extremity bypass graft clotted. Pt is still curren tly smoking 1 1/2 packs a day. Pt does cocaine as recently as last week as per interview today. Pt understands he cannot do all this and expect his bypass graft to stay open. History Source: Patient Limitations to Obtaining History: No Limitations - Past Medical History Cardiovascular: Yes: HTN Gastrointestinal: Yes: GERD Renal/: Yes: BPH - Past Surgical History Past Surgical History: Yes: Hernia Repair - Smoking History Smoking history: Current every day smoker Have you smoked in the past 12 months: Yes Aproximately how many cigarettes per day: 2 If you are a former smoker, when did you quit?: 2 weeks ago - Alcohol/Substance Use Hx Alcohol Use: Yes (3-4 beers/day) Home Medications - Allergies Allergies/Adverse Reactions: Allergies Allergy/AdvReac Type Severity Reaction Status Date / Time No Known Allergies Allergy Verified 12/06/19 13:46 - Home Medications Home Medications: Ambulatory Orders Amlodipine Besylate 10 mg PO DAILY 05/31/17 Gabapentin 100 mg PO TID 05/31/17 Multivitamin [Multiple Vitamins] 1 tab PO DAILY 05/31/17 Tamsulosin HCl 1 tab PO DAILY 05/31/17 Aspirin [ASA -] 81 mg PO DAILY 01/07/18 Simvastatin [Zocor -] 20 mg PO HS 01/07/18 Clopidogrel Bisulfate [Plavix -] 75 mg PO DAILY #30 tablet 08/11/19 Review of Systems - Review of Systems Constitutional: reports: No Symptoms Eyes: reports: No Symptoms HENT: reports: No Symptoms Neck: reports: No Symptoms Cardiovascular: reports: No Symptoms Respiratory: reports: No Symptoms Gastrointestinal: reports: No Symptoms Genitourinary: reports: No Symptoms Breasts: reports: No Symptoms Reported Musculoskeletal: reports: No Symptoms Integumentary: reports: No Symptoms Neurological: reports: No Symptoms Endocrine: reports: No Symptoms Hematology/Lymphatic: reports: No Symptoms Psychiatric: reports: No Symptoms Physical Examination Vital Signs: Vital Signs Temperature 97.8 F 12/07/19 09:00 Pulse Rate 61 12/07/19 09:00 Respiratory Rate 20 12/07/19 09:00 Blood Pressure 132/60 12/07/19 09:00 O2 Sat by Pulse Oximetry (%) 96 12/07/19 09:00 Constitutional: Yes: Well Nourished, No Distress, Calm Eyes: Yes: WNL, Conjunctiva Clear, EOM Intact HENT: Yes: WNL, Atraumatic, Normocephalic Neck: Yes: WNL, Supple, Trachea Midline Cardiovascular: Yes: WNL, Regular Rate and Rhythm Respiratory: Yes: WNL, Regular, CTA Bilaterally Gastrointestinal: Yes: WNL, Normal Bowel Sounds Musculoskeletal: Yes: WNL Extremities: Yes: WNL Edema: No Peripheral Pulses WNL: No (dopplerable ) Integumentary: Yes: WNL Neurological: Yes: WNL, Alert, Oriented ...Motor Strength: WNL Psychiatric: Yes: WNL Problem List - Problems (1) Left leg claudication Assessment/Plan: for angiogram, angioplasty today. Possible open thrombectomy Anand Washington dO Code(s): I73.9 - PERIPHERAL VASCULAR DISEASE, UNSPECIFIED
[2019-12-07] MEDS ORDERED: MIDAZOLAM HCL 2 MG/2 ML SINGLE DOSE VIAL ONE ×2 (11:23→11:24)
[2019-12-07] MEDS ORDERED: ceFAZolin SODIUM 1 GM VIAL ONE (11:24)
[2019-12-07] MEDS ORDERED: HEPARIN NA (PORCINE) 5,000 UNITS/ML 1ML VIAL SQ ONE (11:25)
[2019-12-07] MEDS ORDERED: ceFAZolin 2 GRAM PREMIX BAG IVPB ONE (11:25)
[2019-12-07] MEDS ORDERED: PROPOFOL 20 ML ONE (11:32)
[2019-12-07] MEDS ORDERED: LIDOCAINE HCL 1%, 10 MG/ML (20ML VIAL) ID ONE (11:45)
--- NOTE | 2019-12-07 12:01 | OP ---
Operative Note - Note: Operative Date: 12/07/19 Pre-Operative Diagnosis: Left lower extremity claudication Operation: Aortogram, LLE angiogram Findings: fem pop bypass is closed due to progression of his disease. Post-Operative Diagnosis: Same as Pre-op Surgeon: Anand Washington Anesthesia: MAC Estimated Blood Loss (mls): 20 Operative Report Dictated: Yes
[2019-12-07] MEDS ORDERED: ONDANSETRON 4 MG/2 ML VIAL IVPUSH PRN (12:05)
[2019-12-07 16:03] VITALS: BP 124/82; PULSE 56; TEMP 97.7
--- NOTE | 2019-12-12 13:54 | OP ---
DATE OF OPERATION: DATE OF DICTATION: 12/12/2019 PREOPERATIVE DIAGNOSIS: Thrombosis, left femoropopliteal bypass. POSTOPERATIVE DIAGNOSIS: Thrombosis, left femoropopliteal bypass. PROCEDURE: Aortogram, left lower extremity angiogram. SURGEON: Anand Medina DO ANESTHESIA: Fractional. BLOOD LOSS: 20 mL. The patient is a 68-year-old male who had a left above-knee femoropopliteal PTFE bypass done in April for claudication. Since then, he has not stopped his smoking. He smokes about 1.5 packs a day, and also uses other extraneous drugs such as cocaine. He claims that he was having this pain in his left leg on his way to go buy his cocaine and he realized that his left leg was hurting again and he decided to come to the office. When he came to the office, he does claim that he has not stopped smoking, and on ultrasound it was found that his left femoropopliteal was closed. We decided that we would do an angiogram and see if there is any way we can open the bypass and take some diagnostic images. Patient was consented for the procedure, understanding all risks, benefits, alternatives. The patient had medical and cardiology clearance. Patient was COVID-19 negative and came in through ambulatory surgery. Patient was consented for the procedure, understanding all risks, benefits, alternatives. He was then taken to the operating room. Once in the operating room, he was laid on the operating table in supine manner. The area of the right and left groin were prepped and draped in a sterile surgical manner. We then injected 10 mL lidocaine 1% over the right common femoral artery. We then took our micropuncture needle to puncture the right common femoral artery. Micropuncture wire was inserted, micropuncture sheath was inserted. A traditional 5-St Helenian sheath was inserted. We then placed a 0.035 guidewire up into the aorta followed by Omni Flush catheter. We then shot an aortogram via hand injection, showing that the aorta and iliac arteries were without any disease. We then went up and over to the left common femoral artery using a 0.035 floppy guidewire and Omni Flush catheter followed, we then shot an angiogram of the left lower extremity, showing that the common femoral artery and the profunda were patent. The algaaciq SFA was occluded. We could not see the bypass graft. The patient does have a popliteal artery that is patent and patient has 2-vessel runoff into the foot, so in the future if the patient does need any intervention, patient will probably need a below-knee popliteal bypass now. Currently the patient is only a claudicant and is able to tolerate the pain when he walks; however, before any intervention such as another bypass is undertaken, the patient needs to stop smoking 1-1/2 packs a day and patient needs to stop doing other extraneous drugs such as cocaine. At this point, we brought our Omni Flush catheter up and over and our sheath was removed for the right groin. Pressure was delivered for 5 minutes. After there was no bleeding, the area was wet and dried and Dermabond was placed. Patient tolerated the procedure with no complications. Patient transferred to PACU in stable condition. ANAND MEDINA DO [id number]
== END 2019-12-07 14:30 | disposition home or self-care (01) ==
LOC: JASUSAT 04:37
PROVIDERS: ATTEND Surgery Vascular Surgery
PROC: B41DYZZ Fluoroscopy of Aorta and Bilateral Lower Extremity Arteries using Other Contrast (ICD-10-PCS; principal; 2019-12-07 10:00)
DX: T82.868A Thrombosis due to vascular prosthetic devices, implants and grafts, initial encounter (principal); Y82.8 Other medical devices associated with adverse incidents; Y92.9 Unspecified place or not applicable; I73.9 Peripheral vascular disease, unspecified; F17.210 Nicotine dependence, cigarettes, uncomplicated; I10 Essential (primary) hypertension; K21.9 Gastro-esophageal reflux disease without esophagitis; N40.0 Benign prostatic hyperplasia without lower urinary tract symptoms
CPT/HCPCS: 76000-TC-FY; 94760; J1644

== ENCOUNTER 2023-11-15 10:09 | Emergency (ER) | payer OTHER ==
[2023-11-15 10:28] VITALS: BP 181/82; PULSE 60; RESP 16; TEMP 97.1; BMI 22.4
[2023-11-15] MEDS ORDERED: LIDOCAINE 4% PATCH TP ONE (11:47)
[2023-11-15] MEDS ORDERED: ACETAMINOPHEN 500 MG TABLET (FP) ONE (11:47)
[2023-11-15] MEDS ORDERED: IBUPROFEN 400 MG TABLET (FP) PO ONE (11:47)
[2023-11-15] MEDS: ACETAMINOPHEN 500 MG TABLET (FP) PO ONE (11:52)
[2023-11-15] MEDS: IBUPROFEN 400 MG TABLET (FP) PO ONE (11:53)
[2023-11-15] MEDS: LIDOCAINE 4% PATCH TP ONE (11:53)
[2023-11-15] MEDS ORDERED: LIDOCAINE PATCH REMOVAL MC ONE (22:00)
== END 2023-11-15 12:59 | disposition home or self-care (01) ==
LOC: JER 10:09
DX: M54.2 Cervicalgia (principal); R51.9 Headache, unspecified
CPT/HCPCS: 99283-25

== ENCOUNTER 2023-11-26 20:39 | Emergency (ER) | payer OTHER ==
[2023-11-26 21:09] VITALS: BP 151/85; PULSE 68; RESP 16; TEMP 97.7; BMI 22.4
[2023-11-26] MEDS ORDERED: LIDOCAINE 4% PATCH TP ONE (21:40)
[2023-11-26] MEDS ORDERED: ACETAMINOPHEN 500 MG TABLET (FP) ONE (21:45)
[2023-11-26] MEDS: LIDOCAINE 4% PATCH TP ONE (21:52)
[2023-11-26] MEDS: ACETAMINOPHEN 500 MG TABLET (FP) PO ONE (21:53)
[2023-11-26] MEDS ORDERED: METHOCARBAMOL 500 MG TABLET ONE (21:56)
[2023-11-26] MEDS: METHOCARBAMOL 750 MG TAB PO ONE (21:59)
[2023-11-26] MEDS ORDERED: LIDOCAINE PATCH REMOVAL MC SCH (22:00)
== END 2023-11-27 01:18 | disposition home or self-care (01) ==
LOC: JER 20:39
DX: M54.2 Cervicalgia (principal); R51.9 Headache, unspecified
CPT/HCPCS: 99283-25

== ENCOUNTER 2024-07-29 15:08 | Emergency (ER) | payer OTHER ==
[2024-07-29 15:22] VITALS: TEMP 98.6; BMI 21.6
[2024-07-29] MEDS ORDERED: IBUPROFEN 400 MG TABLET (FP) PO ONE (17:24)
[2024-07-29] MEDS ORDERED: ACETAMINOPHEN INJECTION 100 ML ONE (17:25)
[2024-07-29] MEDS: IBUPROFEN 400 MG TABLET (FP) PO ONE (17:28)
[2024-07-29] MEDS: SODIUM CHLORIDE 1,000 ML IV ONE (17:43)
[2024-07-29] MEDS: ACETAMINOPHEN 1000 MG/100 ML BAG IVPB ONE (17:45)
[2024-07-29 17:50] LABS: ABSOLUTE IMMATURE GRANULOCYTES 0.05 x10^3/uL (0.0-0.031); BASOPHILS # 0.04 x10^3/uL (0.01-0.08); EOSINOPHIL % 0.3 % (0.8-7.0); EOSINOPHILS # 0.04 x10^3/uL (0.04-0.54); HEMOGLOBIN 13.8 g/dL (13.7-17.5); MCHC 32.9 g/dl (32.3-36.5); MEAN CELL VOLUME 86.8 fl (79.0-92.2); MEAN PLT VOLUME 9.3 fl (9.4-12.4); MONOCYTE # 0.88 x10^3/uL (0.30-0.82); MONOCYTE % 7.4 % (5.3-12.2); PLATELET COUNT 234 x10^3/uL (163-337); RDW 14.5 % (12.2-16.6)
[2024-07-29 17:52] LABS: URINE APPEARANCE CLEAR; URINE BILIRUBIN NEGATIVE (NEGATIVE); URINE COLOR YELLOW; URINE GLUCOSE (UA) NEGATIVE (NEGATIVE); URINE KETONE NEGATIVE (NEGATIVE); URINE LEUK ESTERASE NEGATIVE (NEGATIVE); URINE NITRITE NEGATIVE (NEGATIVE); URINE PROTEIN NEGATIVE (NEGATIVE); URINE UROBILINOGEN 0.2 mg/dL (0.2-1.0)
[2024-07-29 18:24] LABS: POTASSIUM 4.1 mmol/L (3.5-5.1)
[2024-07-29 18:27] LABS: CALCIUM 9.7 mg/dL (8.5-10.1)
[2024-07-29 18:28] LABS: ALBUMIN 3.8 g/dl (3.4-5.0); BLOOD UREA NITROGEN 13.1 mg/dL (7-18)
[2024-07-29 18:31] LABS: CREATININE 1.1 mg/dL (0.55-1.3)
[2024-07-29 18:33] LABS: BILIRUBIN,TOTAL 0.5 mg/dL (0.2-1); TOT PROT 7.5 g/dl (6.4-8.2)
[2024-07-29 20:10] VITALS: BP 144/83; PULSE 77; RESP 20
== END 2024-07-29 20:10 | disposition home or self-care (01) ==
LOC: JER 15:08
PROC: 3E033NZ Introduction of Analgesics, Hypnotics, Sedatives into Peripheral Vein, Percutaneous Approach (ICD-10-PCS; principal; 2024-07-29)
PROC: 3E0337Z Introduction of Electrolytic and Water Balance Substance into Peripheral Vein, Percutaneous Approach (ICD-10-PCS; 2024-07-29)
DX: R10.31 Right lower quadrant pain (principal); M79.651 Pain in right thigh; M54.50 Low back pain, unspecified
CPT/HCPCS: 36415; 72100-TC-FY; 73502-TC-RT-FY; 80053; 81003; 85025; 93971-TC; 96361; 96374; 99285-25; J0131

== ENCOUNTER 2024-12-16 18:52 | Inpatient (IN) | payer OTHER ==
[2024-12-16] MEDS ORDERED: ALBUTEROL SO4 2.5/IPRATROPIUM 0.5 INH SOL 3 ML VIAL.NEB. NEB ONE ×2 (19:26→20:12)
[2024-12-16] MEDS: ALBUTEROL SO4 2.5/IPRATROPIUM 0.5 INH SOL 3 ML VIAL.NEB. NEB SCH (19:34)
[2024-12-16 19:52] LABS: BG HCT 34.0 % (35.4-49); VENOUS BASE EXCESS 0.8 mmol/L (-2-2); VENOUS O2 SATURATION 81.9 % (70-80); VENOUS PCO2 41.0 mmHg (38-52); VENOUS PH 7.411 (7.310-7.410)
[2024-12-16 19:53] LABS: ABSOLUTE IMMATURE GRANULOCYTES 0.05 x10^3/uL (0.0-0.031); BASOPHILS # 0.01 x10^3/uL (0.01-0.08); EOSINOPHIL % 3.9 % (0.8-7.0); EOSINOPHILS # 0.24 x10^3/uL (0.04-0.54); MCHC 31.6 g/dl (32.3-36.5); MEAN CELL VOLUME 88.0 fl (79.0-92.2); MEAN PLT VOLUME 10.3 fl (9.4-12.4); MONOCYTE # 0.88 x10^3/uL (0.30-0.82); MONOCYTE % 14.4 % (5.3-12.2); RDW 19.0 % (12.2-16.6)
[2024-12-16 20:15] LABS: GLUCOSE,RANDOM 105.0 mg/dL (74-106)
[2024-12-16 20:16] LABS: TOT PROT 6.7 g/dl (6.4-8.2)
[2024-12-16 20:17] LABS: CO2 23.0 mmol/L (21-32)
[2024-12-16 20:18] LABS: ALK PHOS 154.0 U/L (40-150)
[2024-12-16] MEDS ORDERED: KETOROLAC TROMETHAMINE 15 MG/ML VIAL ONE (20:20)
[2024-12-16] MEDS ORDERED: AZITHROMYCIN IVPB 500 MG/250 ML BAG IVPB ONE (20:20)
[2024-12-16 20:21] LABS: CREATININE 0.7 mg/dL (0.55-1.3); SGOT/AST 32.0 U/L (5-34); SGPT/ALT 38.0 U/L (0-55)
[2024-12-16 20:27] LABS: N-TERMINAL BNP 114.4 pg/mL (0-299.9)
[2024-12-16] MEDS: AZITHROMYCIN IVPB 500 MG in DEXTROSE 5%-WATER - 250 ML IVPB ONE (20:35)
[2024-12-16] MEDS: KETOROLAC TROMETHAMINE 15 MG/ML VIAL IVPUSH ONE (20:35)
[2024-12-16] MEDS: BUDESONIDE 0.5 MG/2 ML INH SUSP VIAL NEB ONE (20:37)
[2024-12-16 22:11] LABS: EPI CELLS 1 /uL (0-25.1); HYALINE CASTS 0 /uL (0-3.1); URINE APPEARANCE CLEAR; URINE BACTERIA 9 /uL (0-1359); URINE BILIRUBIN NEGATIVE (NEGATIVE); URINE COLOR YELLOW; URINE GLUCOSE (UA) NEGATIVE (NEGATIVE); URINE KETONE NEGATIVE (NEGATIVE); URINE LEUK ESTERASE 1+ (NEGATIVE); URINE NITRITE NEGATIVE (NEGATIVE); URINE PROTEIN NEGATIVE (NEGATIVE); URINE RBC 9 /uL (0-23.9); URINE UROBILINOGEN 0.2 mg/dL (0.2-1.0); URINE WBC 12 /uL (0-25.8)
[2024-12-16 23:07] LABS: HCV DIAGNOSTIC IN-HOUSE W/RFLX NON-REACTIVE (NONREACTIVE); HIV INTERPRETATION NEGATIVE (NEGATIVE)
[2024-12-16] MEDS ORDERED: CEFEPIME HCL/D5W 2 GM/50 ML BAG IVPB ONE (23:49)
[2024-12-16] MEDS: CEFEPIME HCL 2 GM VIAL (RESTRICTED TO ID) IVPB ONE (23:52)
[2024-12-17] MEDS ORDERED: FUROSEMIDE 40 MG/4 ML INJECTABLE VIAL ONE (01:35)
[2024-12-17] MEDS: ENOXAPARIN NA (PORCINE) 60 MG/0.6 ML DISP.SYRIN SQ SCH ×2 (01:45→12:31)
[2024-12-17] MEDS: FUROSEMIDE 40 MG/4 ML INJECTABLE VIAL IVPUSH ONE (01:45)
[2024-12-17] MEDS ORDERED: methylPREDNISolone NA SUCC 40 MG/1 ML VIAL ONE (03:07)
[2024-12-17] MEDS: methylPREDNISolone NA SUCC 40 MG/1 ML VIAL IVPUSH SCH (03:12)
[2024-12-17] MEDS: FUROSEMIDE 40 MG/4 ML INJECTABLE VIAL IVPUSH SCH (05:43)
[2024-12-17 06:55] LABS: ABSOLUTE IMMATURE GRANULOCYTES 0.06 x10^3/uL (0.0-0.031); BASOPHILS # 0.01 x10^3/uL (0.01-0.08); EOSINOPHIL % 0.2 % (0.8-7.0); EOSINOPHILS # 0.01 x10^3/uL (0.04-0.54); MCHC 31.5 g/dl (32.3-36.5); MEAN CELL VOLUME 87.8 fl (79.0-92.2); MEAN PLT VOLUME 10.2 fl (9.4-12.4); MONOCYTE # 0.10 x10^3/uL (0.30-0.82); MONOCYTE % 1.9 % (5.3-12.2); RDW 18.8 % (12.2-16.6)
[2024-12-17 06:58] LABS: GLUCOSE,RANDOM 187.0 mg/dL (74-106)
[2024-12-17 06:59] LABS: TOT PROT 6.6 g/dl (6.4-8.2)
[2024-12-17 07:00] LABS: CO2 25.0 mmol/L (21-32)
[2024-12-17 07:02] LABS: ALK PHOS 148.0 U/L (40-150)
[2024-12-17 07:04] LABS: SGOT/AST 23.0 U/L (5-34); SGPT/ALT 35.0 U/L (0-55)
[2024-12-17 07:05] LABS: CREATININE 0.75 mg/dL (0.55-1.3)
[2024-12-17] MEDS: ALBUTEROL SO4 2.5/IPRATROPIUM 0.5 INH SOL 3 ML VIAL.NEB. NEB SCH (07:15)
[2024-12-17] MEDS: TAMSULOSIN HCL 0.4 MG CAP PO SCH (09:23)
[2024-12-17] MEDS: GABAPENTIN 300 MG CAPSULE PO SCH ×2 (09:23→21:32)
[2024-12-17] MEDS: FINASTERIDE 5 MG TABLET (FP) PO SCH (09:23)
[2024-12-17] MEDS: LACTULOSE 20 GM/30 ML UDC (FOR ORAL USE ONLY) PO PRN (09:38)
[2024-12-17] MEDS: MIRTAZAPINE 15 MG TABLET (FP) PO SCH (21:32)
[2024-12-17] MEDS: ATORVASTATIN CA 40 MG TABLET (FP) PO SCH (21:32)
[2024-12-18 06:55] LABS: MCHC 31.3 g/dl (32.3-36.5); MEAN CELL VOLUME 88.7 fl (79.0-92.2); MEAN PLT VOLUME 9.9 fl (9.4-12.4); RDW 18.6 % (12.2-16.6)
[2024-12-18 07:23] LABS: GLUCOSE,RANDOM 260.0 mg/dL (74-106)
[2024-12-18 07:25] LABS: CO2 23.0 mmol/L (21-32)
[2024-12-18 07:29] LABS: CREATININE 0.66 mg/dL (0.55-1.3)
[2024-12-18] MEDS: INSULIN ASPART SLIDING SCALE (NOVOLOG) 1 VIAL SQ SCH (11:11)
[2024-12-18] MEDS: POLYETHYLENE GLYCOL (HEALTHYLAX) 3350 17 GM PACKET PO SCH (12:26)
[2024-12-18] MEDS: ALBUTEROL SO4 2.5/IPRATROPIUM 0.5 INH SOL 3 ML VIAL.NEB. NEB PRN (16:05)
[2024-12-18] MEDS: ACETAMINOPHEN 325 MG TABLET (FP) PO PRN (17:01)
[2024-12-19 06:54] LABS: ABSOLUTE IMMATURE GRANULOCYTES 0.24 x10^3/uL (0.0-0.031); BASOPHILS # 0.01 x10^3/uL (0.01-0.08); EOSINOPHIL % 0.0 % (0.8-7.0); EOSINOPHILS # 0.00 x10^3/uL (0.04-0.54); MCHC 31.5 g/dl (32.3-36.5); MEAN CELL VOLUME 87.1 fl (79.0-92.2); MEAN PLT VOLUME 9.8 fl (9.4-12.4); MONOCYTE # 0.69 x10^3/uL (0.30-0.82); MONOCYTE % 5.8 % (5.3-12.2); RDW 18.5 % (12.2-16.6)
[2024-12-19 07:10] LABS: GLUCOSE,RANDOM 161.0 mg/dL (74-106); TOT PROT 6.8 g/dl (6.4-8.2)
[2024-12-19 07:11] LABS: CO2 26.0 mmol/L (21-32)
[2024-12-19 07:26] LABS: ALK PHOS 139.0 U/L (40-150)
[2024-12-19 07:28] LABS: SGOT/AST 27.0 U/L (5-34); SGPT/ALT 58.0 U/L (0-55)
[2024-12-19 07:29] LABS: CREATININE 0.61 mg/dL (0.55-1.3)
[2024-12-19] MEDS ORDERED: FLUTICASONE/UMECLIDIN/VILANTER(100-62.5-25 TRELEGY ELLIPTA) INAHLER IH SCH (10:00)
[2024-12-19] MEDS ORDERED: FUROSEMIDE 40 MG TABLET (FP) PO SCH (14:00)
[2024-12-19] MEDS ORDERED: FENTANYL PATCH WASTE TD PRN (14:15)
[2024-12-19] MEDS: fentaNYL 25mcg/hr PATCH.TD72 TD SCH (15:22)
[2024-12-19] MEDS: DOCUSATE SODIUM 100 MG CAPSULE (FP) PO SCH (15:23)
[2024-12-19] MEDS: MELATONIN 5 MG TABLETS PO SCH (23:26)
[2024-12-20 06:35] LABS: MCHC 31.0 g/dl (32.3-36.5); MEAN CELL VOLUME 88.4 fl (79.0-92.2); MEAN PLT VOLUME 9.8 fl (9.4-12.4); RDW 18.8 % (12.2-16.6)
[2024-12-20 06:54] LABS: GLUCOSE,RANDOM 123.0 mg/dL (74-106); TOT PROT 6.4 g/dl (6.4-8.2)
[2024-12-20 06:55] LABS: CO2 31.0 mmol/L (21-32)
[2024-12-20 06:57] LABS: ALK PHOS 139.0 U/L (40-150)
[2024-12-20 07:00] LABS: CREATININE 0.64 mg/dL (0.55-1.3); SGOT/AST 28.0 U/L (5-34); SGPT/ALT 49.0 U/L (0-55)
[2024-12-20] MEDS: FUROSEMIDE 40 MG TABLET (FP) PO SCH (09:12)
[2024-12-21] MEDS ORDERED: morphine CARPU-JECT 2 MG/1 ML DISP.SYRIN IVPUSH PRN (14:44)
[2024-12-21] MEDS ORDERED: FENTANYL PATCH WASTE TD PRN (15:14)
[2024-12-21] MEDS: ACETAMINOPHEN 1000 MG/100 ML BAG IVPB SCH (18:32)
[2024-12-21 21:34] VITALS: BMI 20.9
[2024-12-22] MEDS: FUROSEMIDE 40 MG/4 ML INJECTABLE VIAL IVPUSH ONE (10:00)
[2024-12-22] MEDS: fentaNYL 50mcg/hr PATCH.TD72 TD SCH (10:16)
[2024-12-22] MEDS: ALBUTEROL SO4 2.5/IPRATROPIUM 0.5 INH SOL 3 ML VIAL.NEB. NEB SCH (14:30)
[2024-12-22] MEDS: LORazepam 2 MG/ML SDV VIAL IVPUSH PRN (21:58)
[2024-12-23] MEDS: ACETAMINOPHEN 325 MG TABLET (FP) PO PRN (21:10)
[2024-12-24] MEDS ORDERED: ALBUTEROL SO4 2.5/IPRATROPIUM 0.5 INH SOL 3 ML VIAL.NEB. NEB PRN (17:58)
[2024-12-24] MEDS ORDERED: LORazepam 2 MG/ML SDV VIAL IVPUSH PRN (17:58)
[2024-12-24] MEDS ORDERED: LACTULOSE 20 GM/30 ML UDC (FOR ORAL USE ONLY) PO PRN (17:58)
[2024-12-24] MEDS ORDERED: FENTANYL PATCH WASTE TD PRN (17:58)
[2024-12-24] MEDS: ALBUTEROL SO4 2.5/IPRATROPIUM 0.5 INH SOL 3 ML VIAL.NEB. NEB SCH (20:05)
[2024-12-24] MEDS: MIRTAZAPINE 15 MG TABLET (FP) PO SCH (21:29)
[2024-12-24] MEDS: MELATONIN 5 MG TABLETS PO SCH (21:30)
[2024-12-24] MEDS: GABAPENTIN 300 MG CAPSULE PO SCH (21:30)
[2024-12-24 23:24] VITALS: RESP 18
[2024-12-25] MEDS: FUROSEMIDE 40 MG TABLET (FP) PO SCH (10:19)
[2024-12-25] MEDS: TAMSULOSIN HCL 0.4 MG CAP PO SCH (10:19)
[2024-12-25] MEDS: ACETAMINOPHEN 325 MG TABLET (FP) PO PRN (10:20)
[2024-12-25] MEDS: GABAPENTIN 300 MG CAPSULE PO SCH (10:22)
[2024-12-25] MEDS: DOCUSATE SODIUM 100 MG CAPSULE (FP) PO SCH (10:22)
[2024-12-25] MEDS: POLYETHYLENE GLYCOL (HEALTHYLAX) 3350 17 GM PACKET PO SCH (10:23)
[2024-12-25] MEDS: ACETYLCYSTEINE 20% 200MG/ML 4 ML VIAL *FOR ORAL / INH USE ONLY NEB ONE (11:46)
[2024-12-25] MEDS: ALBUTEROL SO4 0.083% IH SOL 2.5 MG/3 ML VIAL.NEB. NEB SCH (11:46)
[2024-12-25 14:07] VITALS: BP 109/84; PULSE 116; TEMP 98
[2024-12-27] MEDS ORDERED: fentaNYL 50mcg/hr PATCH.TD72 TD SCH (15:15)
== END 2024-12-25 14:15 | disposition hospice, inpatient (51) | DRG 190 ==
LOC: JER 18:52 → JERBED 23:12 → J4W 12-17 03:36 → J8W 12-24 16:29
PROVIDERS: ADMIT Internal Medicine; ATTEND Nurse Practitioner Acute Care
DX: J44.1 Chronic obstructive pulmonary disease with (acute) exacerbation (principal); J96.01 Acute respiratory failure with hypoxia; C34.90 Malignant neoplasm of unspecified part of unspecified bronchus or lung; J98.11 Atelectasis; D68.61 Antiphospholipid syndrome; J90 Pleural effusion, not elsewhere classified; C79.51 Secondary malignant neoplasm of bone; I47.20 Ventricular tachycardia, unspecified; I11.0 Hypertensive heart disease with heart failure; I50.9 Heart failure, unspecified; I73.9 Peripheral vascular disease, unspecified; E78.5 Hyperlipidemia, unspecified; N40.0 Benign prostatic hyperplasia without lower urinary tract symptoms; N13.9 Obstructive and reflux uropathy, unspecified; K21.9 Gastro-esophageal reflux disease without esophagitis; E66.01 Morbid (severe) obesity due to excess calories; F41.9 Anxiety disorder, unspecified; G89.3 Neoplasm related pain (acute) (chronic); C61 Malignant neoplasm of prostate; K59.00 Constipation, unspecified
CPT/HCPCS: 36415; 71045-TC-FY; 71275-TC; 72192-TC; 73700-TC-RT; 80048; 80053; 81003; 82803; 82962; 83605; 83735; 83880; 84100; 84484; 85025; 85027; 86803; 86850; 86900; 86901; 87040; 87086; 87389; 87637-QW; 93005; 93010; 93306-TC; 93308; 94640; 94660; 94761; 97116-GP; 97161-GP; 99285-25; Q9967